=== PATIENT | female | born 1995 | race Caucasian/White ===

== ENCOUNTER 2017-01-01 17:33 | Emergency (ER) | payer SELFPAY ==
[~2017-01-01] VITALS: Wt 74.1 kg
[~2017-01-01 17:33] MED LIST: DICL50TA11 PO; HYDR-3498 PO; HYDR-906 PO; IBUP-1542 PO; METO50TA16 PO; NIFE30TA66 PO; PRENAT PO
[2017-01-01] MEDS ORDERED: ACETAMINOPHEN 325 MG TAB PO ONE (19:00)
[2017-01-01 19:07] LABS: ADD UMIC NO; URINE BILIRUBIN (Dip) NEGATIVE (NEGATIVE); URINE BLOOD (Dip) NEGATIVE (NEGATIVE); URINE COLOR LT. YELLOW (YELLOW); URINE GLUCOSE (Dip) NEGATIVE (NEGATIVE); URINE KETONES (Dip) NEGATIVE (NEGATIVE); URINE LEUKOCYTE ESTERASE (Dip) NEGATIVE (NEGATIVE); URINE NITRITE (Dip) NEGATIVE (NEGATIVE); URINE TOTAL PROTEIN (Dip) NEGATIVE (NEGATIVE); URINE UROBILINOGEN (Dip) 0.2 E.U./dL (0.1-1.0)
[2017-01-01] MEDS ORDERED: OXYC-279 PO (20:12)
[2017-01-01] MEDS ORDERED: CIPR500T4 PO (20:12)
[2017-01-01] MEDS ORDERED: ONDANSETRON (ODT) 4 MG TAB ODT STA (20:27)
[2017-01-01] MEDS ORDERED: CIPROFLOXACIN 500 MG TAB PO ONE (20:30)
[2017-01-01] MEDS ORDERED: OXYCODONE/ACETAMINOPHEN (5/325) TAB PO ONE (20:30)
--- NOTE | 2017-01-01 20:31 | ERD ---
ER Documentation Chief Complaint Date/Time DATE: 01/01/17 TIME: 20:31 Chief Complaint 2 MOS NO PERIOD.LOWER ABD PAIN. NO N/V. NO DIARREHA OR FEVERS HPI 21-year-old woman presents with irregular menstruation 2 months with suprapubic discomfort. She states she has been urinating frequently for the last 1 week. She denies fevers or chills, no weight loss, no vaginal discharge , no anorexia, no complaints of chest pain or shortness of breath. ROS All systems reviewed and are negative except as per history of present illness. Medications Home Meds Active Scripts Ondansetron Hcl* (Zofran*) 4 Mg Tablet, 4 MG PO Q8H Y for NAUSEA AND/OR VOMITING , #12 TAB Prov:MARCO BETANCOURT MD 01/01/17 Oxycodone HCl/Acetaminophen (Percocet 5-325 mg Tablet) 1 Each Tablet, 1 EACH PO TID for PAIN, #12 TAB Prov:MARCO BETANCOURT MD 01/01/17 Ciprofloxacin Hcl* (Ciprofloxacin Hcl*) 500 Mg Tablet, 500 MG PO BID for 5 Days , TAB Prov:MARCO BETANCOURT MD 01/01/17 Hydrocodone Bit-Acetaminophen* ([place]*) 5-325 Mg Tab, 1 TAB PO Q6 Y for PAIN, # 20 TAB Prov:TROY VILLA NP 12/13/15 Ibuprofen* (Motrin*) 600 Mg Tab, 600 MG PO Q6H Y for PAIN AND OR ELEVATED TEMP, #30 TAB Prov:TROY VILLA NP 12/13/15 Ibuprofen* (Motrin*) 600 Mg Tab, 600 MG PO Q6, #30 TAB Prov:JOANA MAZARIEGOS 12/06/15 Hydrocodone Bit-Acetaminophen ([place]) 5-325 Mg Tablet, 1 TAB PO Q8 Y for PAIN, # 7 TAB Prov:RENO MCKEON DO 06/29/15 Diclofenac Sodium* (Diclofenac Sodium*) 50 Mg Tablet.dr, 50 MG PO TID, #10 TAB Prov:RENO MCKEON DO 06/29/15 Reported Medications Metoprolol Succinate* (Toprol XL*) Unknown Strength Tab.er.24h, PO DAILY, #20 TAB 12/13/15 Nifedipine* (Procardia XL*) 30 Mg/Bottle Tab.osm.24, 30 MG PO TID for 7 Days, TAB.SA 09/02/14 Multivit/Min/Fol Ac/Iron/Pren* ( S*) 1 Tab Tab, 1 TAB PO DAILY, TAB 06/13/14 Allergies Allergies: Coded Allergies: Penicillins (Verified Allergy, Intermediate, RASH, 06/13/14) PMhx/Soc Hypertension History of Surgery: Yes (c section; gallbladder surgery) Anesthesia Reaction: No Hx Neurological Disorder: Yes Hx Respiratory Disorders: Yes (sinus infection) Hx Cardiac Disorders: Yes (hypertension) Hx Psychiatric Problems: No Hx Miscellaneous Medical Probl: No Hx Alcohol Use: Yes (socially) Hx Substance Use: No Hx Tobacco Use: Yes Smoking Status: Never smoker FmHx Family History: No diabetes Physical Exam Vitals Vital Signs Date Time Temp Pulse Resp B/P Pulse Ox O2 Delivery O2 Flow Rate FiO2 01/01/17 17:59 98.9 102 20 160/82 100 Physical Exam GENERAL: Well-developed, well-nourished, well-hydrated, in no apparent distress , looks nontoxic in appearance HEENT: Moist mucous membranes, pink conjunctiva, no cervical spine tenderness or step-off deformities, no goiter, no jaundice or icterus, extraocular movements intact without pain. No submandibular induration, and no pharyngeal erythema NEURO: Alert and oriented 3, cranial nerves II through XII intact bilaterally, pupils equal round reactive to light, no focal deficits or facial asymmetry, sensation intact distally Strength 5/5 in upper and lower extremities bilaterally CARDIAC: Regular rate and rhythm, no murmurs rubs or gallops LUNGS: Clear bilaterally no wheezing crackles or stridor ABDOMEN: Soft nontender, no guarding, no rigidity, no rebound, no psoas sign no obturator sign. Normoactive bowel sounds SKIN: Warm and dry to touch, no abrasions, contusions, or hematomas, no lacerations, no ecchymosis, no target lesions, and without ulcers EXTREMITIES: No clubbing cyanosis or edema, calves are bilaterally symmetrical, no Homans sign, no popliteal cord sign. Distal pulses equal and bilateral PSYCH: Normal affect without agitation or irritability Results 24 hrs Laboratory Tests Test 01/01/17 18:35 Urine Color LT. YELLOW Urine Clarity CLEAR Urine pH 6.0 Urine Specific [place] 1.020 Urine Ketones NEGATIVE Urine Nitrite NEGATIVE Urine Bilirubin NEGATIVE Urine Urobilinogen 0.2 E.U./dL Urine Leukocyte Esterase NEGATIVE Urine Hemoglobin NEGATIVE Urine Glucose NEGATIVE% Urine Total Protein NEGATIVE Current Medications Medications (Trade) Dose Ordered Sig/Nino Route PRN Reason Start Time Stop Time Status Last Admin Dose Admin Acetaminophen (Tylenol Tab) 650 mg ONCE ONCE PO 01/01/17 19:00 01/01/17 19:01 DC 01/01/17 18:59 Oxycodone/ Acetaminophen (Percocet (5/ 325)) 1 tab ONCE ONCE PO 01/01/17 20:30 01/01/17 20:31 DC 01/01/17 20:22 Ciprofloxacin (Cipro) 500 mg ONCE ONCE PO 01/01/17 20:30 01/01/17 20:31 DC 01/01/17 20:21 Ondansetron HCl (Zofran Odt) 4 mg ONCE STAT ODT 01/01/17 20:27 01/01/17 20:28 DC Procedures/MDM test was negative and urine analysis appears clean although she does have increased urinary frequency and I will be treating her as an outpatient with antibiotics. I initially administered acetaminophen 650 mg p.o. followed by Percocet 1 tablet p.o. with good pain relief. I recommended she follow-up with gynecology to control her irregular menstrual cycle. Her abdominal examination is benign and she has normal vital signs without fever although given her symptoms I did tell her return if she develops fever worsening abdominal pain, vomiting, or anorexia. Differential diagnoses considered, included but not limited to acute coronary syndrome, pulmonary embolism, aortic dissection, abdominal aortic aneurysm, sepsis, stroke, meningitis, encephalitis, pneumonia, appendicitis, cholecystitis , bowel obstruction, pyelonephritis, nephrolithiasis, cystitis, as well as metabolic, hematologic, and electrolyte abnormalities. As well as abscess, cellulitis, fractures, and dislocations. Patient feels much better at this time, and vital signs are normal, symptoms have improved. I did give strict instructions to return to the ED if symptoms continue or worsen, patient will otherwise follow-up with primary care physician. Patient understood instructions and agreed to plan. Departure Diagnosis: Primary Impression: Abdominal pain Abdominal location: lower abdomen, unspecified Qualified Code: R10.30 - Lower abdominal pain Additional Impression: Dysfunctional uterine bleeding Condition: Good Patient Instructions: Abdominal Pain Referrals: IZZY WHITMAN (PCP) MARCO BETANCOURT MD Jan 01, 2017 20:31
[2017-01-01] MEDS ORDERED: ONDA4TAB8 PO (20:32)
== END 2017-01-01 20:37 | disposition home or self-care (01) ==
LOC: FTE 17:33
DX: R10.30 Lower abdominal pain, unspecified (principal); N93.8 Other specified abnormal uterine and vaginal bleeding; I10 Essential (primary) hypertension; F17.210 Nicotine dependence, cigarettes, uncomplicated
CPT/HCPCS: 81003; 99284

== ENCOUNTER 2017-01-05 23:49 | Inpatient (IN) | payer BC ==
[~2017-01-05] VITALS: Ht 149.9 cm; Wt 74.0 kg
[~2017-01-05 23:49] MED LIST changes: +CIPR500T4 PO; +ONDA4TAB8 PO; +OXYC-279 PO
[2017-01-06] MEDS ORDERED: SOD CHLORIDE 0.9% 1,000 ML IV STA (00:09)
[2017-01-06 00:36] LABS: ADD SCAN DIFF NO
[2017-01-06 00:41] LABS: BASOPHILS % 0.5 % (0.0-2.0); EOSINOPHILS # 0.2 10^3/ul (0.0-0.5); EOSINOPHILS % 2.4 % (0.0-7.0); HEMATOCRIT 45.7 % (37.0-47.0); HEMOGLOBIN 15.1 g/dl (12.0-16.0); LYMPHOCYTES # 3.1 10^3/ul (0.8-2.9); MEAN CORPUSCULAR HEMOGLOBIN 28.1 pg (29.0-33.0); MEAN CORPUSCULAR VOLUME 85.1 fl (82.0-101.0); MEAN PLATELET VOLUME 10.8 fl (7.4-10.4); MONOCYTE # 0.7 10^3/ul (0.3-0.9); MONOCYTES % 8.2 % (0.0-11.0); NEUTROPHIL # 4.2 10^3/ul (1.6-7.5); NEUTROPHILS % 50.8 % (39.0-77.0); PLATELET COUNT 304 10^3/UL (140-415); RED BLOOD COUNT 5.37 10^6/ul (4.20-5.40); RED CELL DISTRIBUTION WIDTH 12.6 % (11.5-14.5); WHITE BLOOD COUNT 8.3 10^3/ul (4.8-10.8)
[2017-01-06 01:00] LABS: ALBUMIN 4.9 g/dl (3.3-4.9)
[2017-01-06 01:01] LABS: CHLORIDE 107 mmol/L (97-110); POTASSIUM 3.7 mmol/L (3.5-5.1); SODIUM 142 mmol/L (135-144)
[2017-01-06 01:15] LABS: ALANINE AMINOTRANSFERASE 29 IU/L (13-69); ALBUMIN/GLOBULIN RATIO 1.53; ALKALINE PHOSPHATASE 127 IU/L (42-121); ANION GAP 14 (8-16); ASPARTATE AMINO TRANSFERASE 26 IU/L (15-46); B-TYPE NATRIURETIC PEPTIDE 32 PG/ML (0-125); BILIRUBIN,INDIRECT 0.1 mg/dl (0-1.1); BILIRUBIN,TOTAL 0.1 mg/dl (0.2-1.3); BLOOD UREA NITROGEN 15 mg/dl (7-20); CALCIUM 9.8 mg/dl (8.4-10.2); CARBON DIOXIDE 25 mmol/L (21-31); CREATININE 0.54 mg/dl (0.44-1.00); GLUCOSE 98 mg/dl (70-220); TOTAL PROTEIN 8.1 g/dl (6.1-8.1)
[2017-01-06 01:18] LABS: TROPONIN-I < 0.012 ng/ml (0.00-0.12)
--- NOTE | 2017-01-06 01:18 | RADRPT ---
PROCEDURE: CHEST - 1 VIEW CLINICAL INDICATION: 21-year-old female with chest pain. TECHNIQUE: A single frontal AP upright portable view of the chest was performed. The images were reviewed on a PACS workstation. COMPARISON: Chest x-ray December 06, 2015. FINDINGS: The cardiomediastinal silhouette has a normal appearance. There is no evidence for an infiltrate. T he pulmonary vascularity is within normal limits. There is no evidence for pneumothorax or pneumomed iastinum. The osseous structures are intact. IMPRESSION: No evidence for active cardiopulmonary disease. .Candido Crabtree MD, Date Time Electronically viewed and signed by .Candido Crabtree MD, on 01/06/2017 01:18 .M/
[2017-01-06 01:19] LABS: INR 1.07; PARTIAL THROMBOPLASTIN TIME 29.2 Sec (25.0-35.0); PROTIME 13.9 Sec (12.2-14.2); PT RATIO 1.1; T3 UPTAKE 33.6 % (23.5-40.5)
[2017-01-06] MEDS ORDERED: ONDANSETRON 4 MG INJ IV STA (02:10)
[2017-01-06] MEDS ORDERED: morphine 4 MG/ML VIAL IV STA (02:10)
--- NOTE | 2017-01-06 03:07 | ERA ---
ER Documentation Chief Complaint Date/Time DATE: 01/06/17 TIME: 03:05 Chief Complaint CHEST PRESSURE STARTED 30 MINS AGO HPI This is a 21-year-old female with chest pressure that started 30 minutes ago. The pain is mild to moderate intensity. She is found to have severely elevated heart rate on triage EKG. Denies palpitations. Denies any nausea vomiting. Denies any diaphoresis. Denies any other current complaints. ROS All systems reviewed and are negative except as per history of present illness. Medications Home Meds Active Scripts Ondansetron Hcl* (Zofran*) 4 Mg Tablet, 4 MG PO Q8H Y for NAUSEA AND/OR VOMITING , #12 TAB Prov:MARCO BETANCOURT MD 01/01/17 Oxycodone HCl/Acetaminophen (Percocet 5-325 mg Tablet) 1 Each Tablet, 1 EACH PO TID for PAIN, #12 TAB Prov:MARCO BETANCOURT MD 01/01/17 Ciprofloxacin Hcl* (Ciprofloxacin Hcl*) 500 Mg Tablet, 500 MG PO BID for 5 Days , TAB Prov:MARCO BEATNCOURT MD 01/01/17 Hydrocodone Bit-Acetaminophen* ([place]*) 5-325 Mg Tab, 1 TAB PO Q6 Y for PAIN, # 20 TAB Prov:TROY VILLA YARN HANDLER 12/13/15 Ibuprofen* (Motrin*) 600 Mg Tab, 600 MG PO Q6H Y for PAIN AND OR ELEVATED TEMP, #30 TAB Prov:TROY VILLA [employer] HANDLER 12/13/15 Ibuprofen* (Motrin*) 600 Mg Tab, 600 MG PO Q6, #30 TAB Prov:JOANA MAZARIEGOS 12/06/15 Hydrocodone Bit-Acetaminophen ([place]) 5-325 Mg Tablet, 1 TAB PO Q8 Y for PAIN, # 7 TAB Prov:RENO MCKEON DO 06/29/15 Diclofenac Sodium* (Diclofenac Sodium*) 50 Mg Tablet.dr, 50 MG PO TID, #10 TAB Prov:RENO MCKEON DO 06/29/15 Reported Medications Metoprolol Succinate* (Toprol XL*) Unknown Strength Tab.er.24h, PO DAILY, #20 TAB 12/13/15 Nifedipine* (Procardia XL*) 30 Mg/Bottle Tab.osm.24, 30 MG PO TID for 7 Days, TAB.SA 09/02/14 Multivit/Min/Fol Ac/Iron/Pren* ( S*) 1 Tab Tab, 1 TAB PO DAILY, TAB 06/13/14 Allergies Allergies: Coded Allergies: Penicillins (Verified Allergy, Intermediate, RASH, 06/13/14) PMhx/Soc History of Surgery: Yes (c section; gallbladder surgery) Anesthesia Reaction: No Hx Neurological Disorder: Yes Hx Respiratory Disorders: Yes (sinus infection) Hx Cardiac Disorders: Yes (hypertension, a-fib) Hx Psychiatric Problems: No Hx Miscellaneous Medical Probl: No Hx Alcohol Use: Yes (socially) Hx Substance Use: No Hx Tobacco Use: Yes Smoking Status: Current some day smoker Physical Exam Vitals Vital Signs Date Time Temp Pulse Resp B/P Pulse Ox O2 Delivery O2 Flow Rate FiO2 01/06/17 01:29 101 17 127/75 100 Room Air 01/06/17 00:26 97 17 151/110 100 Room Air 01/05/17 23:56 98.8 90 20 138/100 100 Physical Exam Const: [] Head: Atraumatic Eyes: Normal Conjunctiva ENT: Normal External Ears, Nose and Mouth. Neck: Full range of motion..~ No meningismus. Resp: Clear to auscultation bilaterally Cardio: Regular rate and rhythm, no murmurs Abd: Soft, non tender, non distended. Normal bowel sounds Skin: No petechiae or rashes Back: No midline or flank tenderness Ext: No cyanosis, or edema Neur: Awake and alert Psych: Normal Mood and Affect Result Diagram: 01/06/17 0020 01/06/17 0020 Results 24 hrs Laboratory Tests Test 01/06/17 00:20 White Blood Count 8.310^3/ul Red Blood Count 5.3710^6/ul Hemoglobin 15.1g/dl Hematocrit 45.7% Mean Corpuscular Volume 85.1fl Mean Corpuscular Hemoglobin 28.1pg Mean Corpuscular Hemoglobin Concent 33.0g/dl Red Cell Distribution Width 12.6% Platelet Count 85500^3/UL Mean Platelet Volume 10.8fl Neutrophils % 50.8% Lymphocytes % 38.0% Monocytes % 8.2% Eosinophils % 2.4% Basophils % 0.5% Nucleated Red Blood Cells % 0.0/100WBC Neutrophils # 4.210^3/ul Lymphocytes # 3.110^3/ul Monocytes # 0.710^3/ul Eosinophils # 0.210^3/ul Basophils # 0.010^3/ul Nucleated Red Blood Cells # 0.010^3/ul Prothrombin Time 13.9Sec Prothrombin Time Ratio 1.1 INR International Normalized Ratio 1.07 Activated Partial Thromboplast Time 29.2Sec Sodium Level 142mmol/L Potassium Level 3.7mmol/L Chloride Level 107mmol/L Carbon Dioxide Level 25mmol/L Anion Gap 14 Blood Urea Nitrogen 15mg/dl Creatinine 0.54mg/dl Glucose Level 98mg/dl Calcium Level 9.8mg/dl Total Bilirubin 0.1mg/dl Direct Bilirubin 0.00mg/dl Indirect Bilirubin 0.1mg/dl Aspartate Amino Transf (AST/SGOT) 26IU/L Alanine Aminotransferase (ALT/SGPT) 29IU/L Alkaline Phosphatase 127IU/L Troponin I < 0.012ng/ml B-Type Natriuretic Peptide 32PG/ML Total Protein 8.1g/dl Albumin 4.9g/dl Globulin 3.20g/dl Albumin/Globulin Ratio 1.53 Thyroid Stimulating Hormone (TSH) 2.450MIU/L Free Thyroxine Index 2.15ug/ml Thyroxine (T4) 6.4ug/dl Triiodothyronine (T3) Uptake 33.6% Current Medications Medications (Trade) Dose Ordered Sig/Nino Route PRN Reason Start Time Stop Time Status Last Admin Dose Admin Sodium Chloride (NS) 1,000 ml @ 1,000 mls/hr Q1H STAT IV 01/06/17 00:09 01/06/17 01:08 DC 01/06/17 00:22 Morphine Sulfate (morphine) 4 mg ONCE STAT IV 01/06/17 02:10 01/06/17 02:13 DC 01/06/17 02:25 Ondansetron HCl (Zofran Inj) 4 mg ONCE STAT IV 01/06/17 02:10 01/06/17 02:13 DC 01/06/17 02:24 Procedures/MDM EKG: Rate/Rhythm: Irregular rate tachycardic rhythm QRS, ST, T-waves: [No changes consistent w/ acute ischemia] Impression: Atrial fibrillation rapid ventricular response Chest X-ray 1V Interpreted by me: Soft Tissue: No acute abnormalities Bones: No acute abnormalities Mediastinum/Cardiac Silhouette/Lungs: [No acute abnormalities] Patient's symptoms are concerning for cardiac cause will require inpatient workup and continuous monitoring. Further w/u for ischemia, arrhythmia, PE or dissection will be deferred to the inpatient team. Accepting Care Team: Current data and ongoing care discussed. Time: 3 AM Primary Provider: Hospitalist Consulting: [XOXOXO] Outstanding Data: none Departure Diagnosis: Primary Impression: Chest pain Qualified Code: R07.9 - Chest pain, unspecified type Additional Impression: Atrial fibrillation with RVR Condition: Serious AARTI CHANEY Jan 06, 2017 03:06
[2017-01-06 03:30] LABS: BARBITURATES Negative (NEGATIVE); BENZODIAZEPINES Negative (NEGATIVE); CANNABINOIDS Negative (NEGATIVE); COCAINE Negative (NEGATIVE); OPIATES Negative (NEGATIVE)
--- NOTE | 2017-01-06 03:48 | HP ---
Date/Time of Note Date/Time of Note DATE: 01/06/17 TIME: 03:39 Assessment/Plan VTE Prophylaxis VTE Prophylaxis Intervention: ambulation Assessment/Plan Assessment/Plan 1) Chest pain Qualified Code: R07.9 - Chest pain, unspecified type - Admit to Telemetry - Serial Cardiac Enzymes - EKG in AM - Cardiology Consult in AM 2) Atrial fibrillation with RVR, stabilized/converted spontaneously in ER - Monitor HPI/ROS Admit Date/Time Admit Date/Time 01/06/17 0451 Hx of Present Illness Patient tells me that her symptoms started when she was leaving work. She states she felt her heart race and then she felt it beat irregularly. She felt a little SOB and some nausea. No specific cardiac history, but she did have similar symptoms when she was . She states they did n't find anything, but she is not sure if she had atrial fibrillation at that time. Still a little SOB and nauseated though she is interested in getting something to eat. She states her chest feels better, but does not specifically describe chest pain. She states that she was in her usual state of health prior to this episode and has had no recent illness. No fever, chills, sore throat, cough, wheeze, abdominal pain, diarrhea or body aches. She does feel that her ankles are swollen, but does not relate it to this specific episode. According to the ER notes, the patient presented with chest pain that had started 30 minutes prior to arrival. They found her heart rate to be severely elevated on the triage EKG. She denied any palpitations or nausea or vomiting. No other current complaints. ROS General: Admits: Denies: Fever, Chills, Poor Appetite, Generalized Body Aches Eyes: Admits: Denies: Blurry Vision, Double Vision HENT: Admits: Denies: Ear Pain/Pressure, Runny/Stuffy Nose, Sore Throat Cardiovascular: Admits: Palpitations, Leg Swelling Denies: Chest Pain Pulmonary: Admits: Shortness of Breath Denies: Cough, Wheeze Gastrointestinal: Admits: Nausea, Denies: Abdominal Pain, Vomiting, Diarrhea, Blood in Stool, Black-Colored Stool Urogenital: Admits: Denies: Burning with Urination, Urinary Frequency Musculoskeletal: Admits: Denies: Joint Pain, Joint Swelling, Muscle Pain Neurological: Admits: Headache, mild, resolved Denies: Dizziness, Numbness, Tingling, Shooting Pains Integumentary: Admits: Denies: Rash, Itch Endocrine: Admits: Denies: Excessive Thirst, Excessive Hunger, Intolerant to Cold , Intolerant to Heat PMH/Family/Social Past Medical History HTN; A-fib Past Surgical History c section; gallbladder surgery Social History Alcohol Use: occasionally Smoking Status: Current some day smoker Drug Use: none Exam/Review of Systems Vital Signs Vitals Vital Signs Date Time Temp Pulse Resp B/P Pulse Ox O2 Delivery O2 Flow Rate FiO2 01/06/17 03:29 84 18 106/68 100 Room Air 01/05/17 23:56 98.8 Intake and Output 01/05/17 01/05/17 01/06/17 15:00 23:00 07:00 Intake Total 1000 ml Balance 1000 ml Exam Exam General: WD/WN 21 year old female, alert and oriented, in no acute distress Eyes: Sclera White, EOMI HENT: Normocephalic/Atraumatic, External Ears/Nose Normal, Moist Mucus Membranes Neck: Supple, Trachea Midline Cardiovascular: Normal Rate, Normal Rhythm, Normal S1 and S2, No Murmur, No Extra Sounds, radial pulse +2/4, regular. No pedal edema. Pulmonary: Clear to Auscultation Bilaterally, Normal Respiratory Effort, No Rales, Rhonchi or Wheezes Gastrointestinal: Normoactive Bowel Sounds, Soft, Non-Tender/Non-Distended, No Hepatosplenomegaly Appreciated, No Pulsatile Masses Urogenital: Deferred Musculoskeletal: Normal Muscle Bulk and Tone Neurological: CN II - XII Grossly Intact, Non-Focal, Speech Normal Integumentary: Normal Moisture and Temperature, Good Turgor, No Jaundice, No Rash Lymphatic: No Cervical Lymphadenopathy Psychiatric: Appropriate Mood and Affect, Good Eye Contact Labs Result Diagram: 01/06/17 0020 01/06/17 0020 Medications Medications Home Meds Active Scripts Ondansetron Hcl* (Zofran*) 4 Mg Tablet, 4 MG PO Q8H Y for NAUSEA AND/OR VOMITING , #12 TAB Prov:MARCO BETANCOURT MD 01/01/17 Oxycodone HCl/Acetaminophen (Percocet 5-325 mg Tablet) 1 Each Tablet, 1 EACH PO TID for PAIN, #12 TAB Prov:MARCO BETANCOURT MD 01/01/17 Ciprofloxacin Hcl* (Ciprofloxacin Hcl*) 500 Mg Tablet, 500 MG PO BID for 5 Days , TAB Prov:MARCO BETANCOURT MD 01/01/17 Hydrocodone Bit-Acetaminophen* ([place]*) 5-325 Mg Tab, 1 TAB PO Q6 Y for PAIN, # 20 TAB Prov:TROY VILLA [employer] COORDINATOR 12/13/15 Ibuprofen* (Motrin*) 600 Mg Tab, 600 MG PO Q6H Y for PAIN AND OR ELEVATED TEMP, #30 TAB Prov:TROY VILLA [employer] COORDINATOR 12/13/15 Ibuprofen* (Motrin*) 600 Mg Tab, 600 MG PO Q6, #30 TAB Prov:JOANA MAZARIEGOS 12/06/15 Hydrocodone Bit-Acetaminophen ([place]) 5-325 Mg Tablet, 1 TAB PO Q8 Y for PAIN, # 7 TAB Prov:RENO MCKEON DO 06/29/15 Diclofenac Sodium* (Diclofenac Sodium*) 50 Mg Tablet.dr, 50 MG PO TID, #10 TAB Prov:RENO MCKEON DO 06/29/15 Reported Medications Metoprolol Succinate* (Toprol XL*) Unknown Strength Tab.er.24h, PO DAILY, #20 TAB 12/13/15 Nifedipine* (Procardia XL*) 30 Mg/Bottle Tab.osm.24, 30 MG PO TID for 7 Days, TAB.SA 09/02/14 Multivit/Min/Fol Ac/Iron/Pren* ( S*) 1 Tab Tab, 1 TAB PO DAILY, TAB 06/13/14 Current Medications Medications (Trade) Dose Ordered Sig/Nino Route PRN Reason Start Time Stop Time Status Last Admin Dose Admin Sodium Chloride (NS) 1,000 ml @ 1,000 mls/hr Q1H STAT IV 01/06/17 00:09 01/06/17 01:08 DC 01/06/17 00:22 Morphine Sulfate (morphine) 4 mg ONCE STAT IV 01/06/17 02:10 01/06/17 02:13 DC 01/06/17 02:25 Ondansetron HCl (Zofran Inj) 4 mg ONCE STAT IV 01/06/17 02:10 01/06/17 02:13 DC 01/06/17 02:24 Procedures Procedures Laboratory Tests Test 01/06/17 00:20 White Blood Count 8.310^3/ul Red Blood Count 5.3710^6/ul Hemoglobin 15.1g/dl Hematocrit 45.7% Mean Corpuscular Volume 85.1fl Mean Corpuscular Hemoglobin 28.1pg Mean Corpuscular Hemoglobin Concent 33.0g/dl Red Cell Distribution Width 12.6% Platelet Count 98718^3/UL Mean Platelet Volume 10.8fl Neutrophils % 50.8% Lymphocytes % 38.0% Monocytes % 8.2% Eosinophils % 2.4% Basophils % 0.5% Nucleated Red Blood Cells % 0.0/100WBC Neutrophils # 4.210^3/ul Lymphocytes # 3.110^3/ul Monocytes # 0.710^3/ul Eosinophils # 0.210^3/ul Basophils # 0.010^3/ul Nucleated Red Blood Cells # 0.010^3/ul Prothrombin Time 13.9Sec Prothrombin Time Ratio 1.1 INR International Normalized Ratio 1.07 Activated Partial Thromboplast Time 29.2Sec Sodium Level 142mmol/L Potassium Level 3.7mmol/L Chloride Level 107mmol/L Carbon Dioxide Level 25mmol/L Anion Gap 14 Blood Urea Nitrogen 15mg/dl Creatinine 0.54mg/dl Glucose Level 98mg/dl Calcium Level 9.8mg/dl Total Bilirubin 0.1mg/dl Direct Bilirubin 0.00mg/dl Indirect Bilirubin 0.1mg/dl Aspartate Amino Transf (AST/SGOT) 26IU/L Alanine Aminotransferase (ALT/SGPT) 29IU/L Alkaline Phosphatase 127IU/L Troponin I < 0.012ng/ml B-Type Natriuretic Peptide 32PG/ML Total Protein 8.1g/dl Albumin 4.9g/dl Globulin 3.20g/dl Albumin/Globulin Ratio 1.53 Thyroid Stimulating Hormone (TSH) 2.450MIU/L Free Thyroxine Index 2.15ug/ml Thyroxine (T4) 6.4ug/dl Triiodothyronine (T3) Uptake 33.6% -E-K-G--:- Rate/Rhythm: Irregular rate tachycardic rhythm QRS, ST, T-waves: [No changes consistent w/ acute ischemia] Impression: Atrial fibrillation rapid ventricular response RADIOLOGY: PROCEDURE: CHEST - 1 VIEW CLINICAL INDICATION: 21-year-old female with chest pain. TECHNIQUE: A single frontal AP upright portable view of the chest was performed. The images were reviewed on a PACS workstation. COMPARISON: Chest x-ray December 06, 2015. IMPRESSION: No evidence for active cardiopulmonary disease. DAYANARA MCKENZIE DO Jan 06, 2017 03:48
[2017-01-06] MEDS ORDERED: NACL 0.9% 3 ML SYG IV SCH ×2 (04:00→07:00)
[2017-01-06] MEDS ORDERED: OXYCODONE/ACETAMINOPHEN (5/325) TAB PO PRN (04:00)
[2017-01-06] MEDS ORDERED: NITROGLYCERIN (SL) 0.4 MG TAB SL PRN ×2 (04:00→07:00)
[2017-01-06] MEDS ORDERED: morphine 2 MG INJ IV PRN ×2 (04:00→07:00)
[2017-01-06] MEDS ORDERED: METOCLOPRAMIDE 10 MG INJ IV ONE (04:00)
[2017-01-06] MEDS ORDERED: ACETAMINOPHEN 325 MG TAB PO PRN ×2 (04:00→07:00)
[2017-01-06] MEDS ORDERED: METOCLOPRAMIDE 10 MG INJ IV PRN (07:00)
[2017-01-06] MEDS ORDERED: ONDANSETRON 4 MG TAB PO PRN (07:00)
[2017-01-06] MEDS: HYDROCODONE/APAP (5/325) TAB PO PRN ×2 (07:32→20:35)
[2017-01-06] MEDS: NIFEdipine (XL) 30 MG TAB PO SCH ×3 (09:11→22:08)
--- NOTE | 2017-01-06 11:52 | QN ---
Documentation Comment Observation Note: Time: 4 hours Family Hx: Negative for diabetes Evaluation: Multiple exams showed improving symptoms and no evidence of clinical decompensation. PEE GASCA MD Jan 06, 2017 11:52
[2017-01-06 14:15] LABS: CREATINE KINASE 54 IU/L (23-200)
[2017-01-06 14:22] LABS: CK-MB 0.66 ng/ml (0.0-2.4)
[2017-01-06 14:26] LABS: TROPONIN-I < 0.012 ng/ml (0.00-0.12)
[2017-01-06 15:00] VITALS: Ht 149.9 cm; Wt 74.0 kg
[2017-01-06 15:04] VITALS: PULSE 92
[2017-01-06] MEDS ORDERED: KETOROLAC 30 MG INJ IV STA (15:15)
[2017-01-06 15:48] VITALS: BP 124/71; RESP 18
[2017-01-06 16:00] VITALS: PULSE 67
[2017-01-06 16:16] LABS: CREATINE KINASE 52 IU/L (23-200)
[2017-01-06 16:25] LABS: CK-MB 0.56 ng/ml (0.0-2.4)
[2017-01-06 16:31] LABS: TROPONIN-I < 0.012 ng/ml (0.00-0.12)
[2017-01-06 17:34] LABS: ADD UMIC YES; URINE BILIRUBIN (Dip) NEGATIVE (NEGATIVE); URINE BLOOD (Dip) 3+ (NEGATIVE); URINE COLOR LT. YELLOW (YELLOW); URINE GLUCOSE (Dip) NEGATIVE (NEGATIVE); URINE KETONES (Dip) NEGATIVE (NEGATIVE); URINE LEUKOCYTE ESTERASE (Dip) NEGATIVE (NEGATIVE); URINE NITRITE (Dip) NEGATIVE (NEGATIVE); URINE TOTAL PROTEIN (Dip) NEGATIVE (NEGATIVE); URINE UROBILINOGEN (Dip) 0.2 E.U./dL (0.1-1.0)
[2017-01-06 17:49] LABS: BACTERIA,URINE MANY; SQUAMOUS EPITHELIAL CELL,UR FEW
--- NOTE | 2017-01-06 18:52 | CONS ---
DATE OF ADMISSION: 01/06/2017 DATE OF CONSULTATION: 01/06/2017 TYPE OF CONSULTATION: Cardiology. REFERRING PHYSICIAN: Dr. Pearce. REASON FOR EVALUATION: Atrial fibrillation with rapid ventricular response. HISTORY OF PRESENT ILLNESS: Mr. Franklin is a 21-year-old woman with history of paroxysmal atrial f ibrillation who comes to the hospital now for evaluation of episode of atrial fibrillation with rapi d ventricular response. Patient was seen in the emergency department, heart rate at that time was 1 73. She was treated with medications, currently converted to sinus. The patient's CHADS score is l ess than 1. There is no indication for ____ blood pressure right now. I believe the patient ought to be on aspirin. I think consideration for atrial fibrillation and ablation is warranted at this p articular point. She states that she had a similar episode after her and I think that 2-D echo would be needed in order to evaluate for possible presence of cardiomyopathy. For now, conser vative therapy is expected. Patient tolerated a small dose of beta caden and she should also be o n aspirin. Other than that, we will wait for results to provide more information about her conditio n. PAST MEDICAL HISTORY: History of paroxysmal atrial fibrillation. ALLERGIES: NONE. SOCIAL HISTORY: The patient does not smoke, does not drink, does not use drugs now but she does hav e a history of tobacco use. FAMILY HISTORY: Negative for sudden cardiac or premature coronary artery disease. MEDICATIONS: Currently include: 1. Nifedipine 30 mg p.o. t.i.d. 2. IV flush. 3. Oxycodone. 4. Morphine for pain. REVIEW OF SYSTEMS: CONSTITUTIONAL: No fevers, no chills. CARDIAC: As described. HEENT: No changes in vision. CARDIAC: Chest pain during atrial fibrillation. RESPIRATORY: Shortness of breath, acute on chronic atrial fibrillation. GASTROINTESTINAL: No nausea, vomiting, diarrhea, constipation. GENITOURINARY: No dysuria, hematuria or difficult urination. NEUROLOGIC: No focal neurologic deficits. PSYCHIATRIC: Possible history of anxiety. PHYSICAL EXAMINATION: VITAL SIGNS: Temperature is 98.0, heart rate 67, blood pressure 124/71. GENERAL: She is an obese woman in no acute distress, alert and oriented x3, aware of her condition. HEAD: Normocephalic, atraumatic. Eyes anicteric. NECK: Supple. JVD 6-7 cm. There is no lymphadenopathy. HEART: Regular with soft holosystolic murmur at the apex. PMI is nondisplaced. No S3. LUNGS: Coarse at bases. ABDOMEN: Soft, bowel sounds are present. There is no hepatosplenomegaly. GENITOURINARY: Grossly intact. EXTREMITIES: No cyanosis or edema. LABORATORY DATA: White blood cell count 8.3, hemoglobin is 15.1, platelets 304. INR is 1.07. Sodi um 142, potassium 3.8. Her troponin is negative at 0.012. TSH is normal at 2.4. ASSESSMENT AND PLAN: Atrial fibrillation with rapid ventricular response. This is her second episo de. Her CHADS score is less than 1 and I recommend for the patient to be on aspirin. We will add b eta caden. 2. Hypertension. Blood pressure modestly well controlled. Continue current medical therapy. We will discontinue____ 3. Chest pain. The patient has chest pain during tachycardia as well as shortness of breath. She did not rule in for ischemia, no further risk stratification is warranted. I will follow up with a 2-D echo. 4. [address] Pearce for referring this patient for my evaluation. Dictated By: CINDY DAVID MD ML/MARSHALL Conf#: [id number] DID#: [id number]
[2017-01-06 20:11] VITALS: PULSE 78
[2017-01-06 20:37] VITALS: BP 135/71; RESP 20
[2017-01-07] VITALS (10 sets, daily range): BP systolic 106–122; BP diastolic 53–88; PULSE 60–89; RESP 16–20
[2017-01-07 00:02] LABS: CREATINE KINASE 53 IU/L (23-200)
[2017-01-07 00:12] LABS: CK-MB 0.59 ng/ml (0.0-2.4)
[2017-01-07 00:20] LABS: TROPONIN-I < 0.010 ng/ml (0.00-0.12)
[2017-01-07 07:39] LABS: ADD SCAN DIFF NO
[2017-01-07 07:44] LABS: BASOPHILS % 0.6 % (0.0-2.0); EOSINOPHILS # 0.3 10^3/ul (0.0-0.5); EOSINOPHILS % 3.8 % (0.0-7.0); HEMATOCRIT 41.8 % (37.0-47.0); HEMOGLOBIN 13.5 g/dl (12.0-16.0); LYMPHOCYTES # 3.1 10^3/ul (0.8-2.9); LYMPHOCYTES % 44.6 % (15.0-51.0); MEAN CORPUSCULAR HGB CONC 32.3 g/dl (32.0-37.0); MEAN CORPUSCULAR VOLUME 86.5 fl (82.0-101.0); MONOCYTE # 0.6 10^3/ul (0.3-0.9); MONOCYTES % 8.3 % (0.0-11.0); NEUTROPHIL # 2.9 10^3/ul (1.6-7.5); NEUTROPHILS % 42.6 % (39.0-77.0); PLATELET COUNT 253 10^3/UL (140-415); RED BLOOD COUNT 4.83 10^6/ul (4.20-5.40); RED CELL DISTRIBUTION WIDTH 12.8 % (11.5-14.5); WHITE BLOOD COUNT 6.8 10^3/ul (4.8-10.8)
[2017-01-07 08:02] LABS: CHOL/HDL RATIO 2.6 RATIO; MAGNESIUM 2.1 mg/dl (1.7-2.5)
[2017-01-07 08:03] LABS: POTASSIUM 4.4 mmol/L (3.5-5.1)
[2017-01-07 08:05] LABS: CREATININE 0.61 mg/dl (0.44-1.00)
[2017-01-07 08:06] LABS: CALCIUM 8.9 mg/dl (8.4-10.2)
[2017-01-07] MEDS: NIFEdipine (XL) 30 MG TAB PO SCH ×3 (09:10→22:00)
--- NOTE | 2017-01-07 11:36 | PN ---
Date/Time of Note Date/Time of Note DATE: 01/07/17 TIME: 11:33 Assessment/Plan VTE Prophylaxis VTE Prophylaxis Intervention: ambulation, SCD's Lines/Catheters Urinary Cath still in place: No Assessment/Plan Assessment/Plan 1. Paroxysmal Afib s/p RVR, now sinus with good rate 2. STEFF Chest pain 3. Chronic HTN: controlled PLAN: f/u echo report f/u cardio recs to see if ablation is warranted Continue BB. asa. supportive care. Subjective 24 Hr Interval Summary Free Text/Dictation feels well, no more palpitations Exam/Review of Systems Vital Signs Vitals Vital Signs Date Time Temp Pulse Resp B/P Pulse Ox O2 Delivery O2 Flow Rate FiO2 01/07/17 08:29 89 01/07/17 07:59 98.5 20 122/88 99 01/06/17 07:19 Room Air Intake and Output 01/06/17 01/06/17 01/07/17 15:00 23:00 07:00 Intake Total 500 ml 120 ml Balance 500 ml 120 ml Exam Constitutional: alert, obese, oriented, No distress Head: atraumatic, normocephalic Eyes: PERRL Neck: supple Respiratory: clear to auscultation, normal air movement Cardiovascular: regular rate and rhythm, No murmurs/extra sounds Gastrointestinal: bowel sounds, non-tender, soft Extremities: No edema Results Result Diagram: 01/07/17 0645 01/07/17 0645 Results 24 hrs Laboratory Tests Test 01/06/17 13:50 01/06/17 15:45 01/06/17 17:15 01/06/17 23:35 Creatine Kinase 54 52 53 Creatine Kinase Index 1.2 1.1 1.1 Creatinine Kinase MB (Mass) 0.66 0.56 0.59 Troponin I < 0.012 < 0.012 < 0.010 Magnesium Level 2.1 Urine Color LT. YELLOW Urine Clarity CLOUDY Urine pH 8.0 Urine Specific [place] 1.015 Urine Ketones NEGATIVE Urine Nitrite NEGATIVE Urine Bilirubin NEGATIVE Urine Urobilinogen 0.2 E.U./dL Urine Leukocyte Esterase NEGATIVE Urine Microscopic RBC 10-25 Urine Microscopic WBC 0-2 Urine Squamous Epithelial Cells FEW Urine Bacteria MANY Urine Hemoglobin 3+ H Urine Glucose NEGATIVE Urine Total Protein NEGATIVE Test 01/07/17 06:45 White Blood Count 6.8 Red Blood Count 4.83 Hemoglobin 13.5 Hematocrit 41.8 Mean Corpuscular Volume 86.5 Mean Corpuscular Hemoglobin 28.0 L Mean Corpuscular Hemoglobin Concent 32.3 Red Cell Distribution Width 12.8 Platelet Count 253 Mean Platelet Volume 11.0 H Neutrophils % 42.6 Lymphocytes % 44.6 Monocytes % 8.3 Eosinophils % 3.8 Basophils % 0.6 Nucleated Red Blood Cells % 0.0 Neutrophils # 2.9 Lymphocytes # 3.1 H Monocytes # 0.6 Eosinophils # 0.3 Basophils # 0.0 Nucleated Red Blood Cells # 0.0 Sodium Level 136 Potassium Level 4.4 Chloride Level 105 Carbon Dioxide Level 24 Anion Gap 11 Blood Urea Nitrogen 12 Creatinine 0.61 Glucose Level 91 Calcium Level 8.9 Magnesium Level 2.1 Triglycerides Level 83 Cholesterol Level 155 LDL Cholesterol, Calculated 80 HDL Cholesterol 58 Cholesterol/HDL Ratio 2.6 Medications Medications Current Medications Nifedipine (Procardia Xl) 30 mg TID PO Last administered on 01/07/17 09:10; Admin Dose 30 MG; Start 01/06/17 at 09:00 Nitroglycerin (Nitroglycerin (Sl Tab) 0.4 Mg) 1 tab Q5M PRN SL CHEST PAIN; Start 01/06/17 at 04:00 Acetaminophen (Tylenol Tab) 650 mg Q6H PRN PO PAIN LEVEL 1-3 OR FEVER; Start at 04:00 Oxycodone/ Acetaminophen (Percocet (5/ 325)) 1 tab Q6H PRN PO PAIN LEVEL 4-6; Start 01/06/17 at 04:00 Morphine Sulfate (morphine) 2 mg Q4H PRN IV PAIN LEVEL 7-10; Start 01/06/17 at 04:00 Ondansetron HCl (Zofran Tab) 4 mg Q6H PRN PO NAUSEA AND/OR VOMITING; Start 01/06 at 07:00 Metoclopramide HCl (Reglan) 10 mg Q6H PRN IV NAUSEA AND/OR VOMITING; Start 01/06 at 07:00 Acetaminophen/ Hydrocodone Bitart ([place] (5/325)) 1 tab Q6H PRN PO PAIN LEVEL 4 -6 Last administered on 01/06/17 20:35; Admin Dose 1 TAB; Start 01/06/17 at 07:00 Carvedilol (Coreg) 6.25 mg BID PO Last administered on 01/07/17t 09:11; Admin Dose 6.25 MG; Start 01/06/17 at 21:00 GIFTY WELLER Jan 07, 2017 11:36
[2017-01-07] MEDS: HYDROCODONE/APAP (5/325) TAB PO PRN (13:24)
[2017-01-07] MEDS ORDERED: CARV6.2579 PO (14:22)
[2017-01-07] MEDS ORDERED: NIFEdipine (XL) PO (14:22)
[2017-01-07] MEDS ORDERED: AMOX1TAB10 PO (14:22)
--- NOTE | 2017-01-07 14:25 | PDOCDIS ---
Discharge Instructions DIAGNOSIS Discharge Diagnosis: Paroxysmal Atrial Fibrillation CONDITION Patient Condition: Stable HOME CARE INSTRUCTIONS: Diet Instructions: Low Fat /Cholesterol ACTIVITY: Activity Restrictions: Slowly Increase Activity Rest between Activity OTHER ORDERS: Other Orders: Call Dr Srivastava's office for followup Name, Degree: Efra Vogel MD Specialty: Cardiology Comments: Office Address: [address] [place] [address] Office Office GIFTY WELLER Jan 07, 2017 14:25
--- NOTE | 2017-01-07 15:34 | CONS ---
Date/Time of Note Date/Time of Note DATE: 01/07/17 TIME: 15:30 Assessment/Plan Assessment/Plan Chief Complaint/Hosp Course IMP: 1.PAF-now in SR/NL TSH 2.CHest pain-at rest-negative troponin's>3 since admit ? vasospasm 3.HTN-well controlled Recc: -Tele -Continue CCB/BB/asa -for ongoing sx consider addition of oral nitrates -Will f/u echo -If remains stable with no recurrent symptoms then d/c planning with outpatient cardiology f/u Problems: Consultation Date/Type/Reason Admit Date/Time Jan 06, 2017 at 04:51 Initial Consult Date 01/06/2017 Type of Consultation: Cardiology Reason for Consultation AF/chest pain Referring Provider: GIFTY WELLER Exam/Review of Systems Vital Signs Vitals Vital Signs Date Time Temp Pulse Resp B/P Pulse Ox O2 Delivery O2 Flow Rate FiO2 01/07/17 12:28 76 01/07/17 12:16 98.8 20 106/53 98 01/06/17 07:19 Room Air Intake and Output 01/06/17 01/06/17 01/07/17 15:00 23:00 07:00 Intake Total 500 ml 120 ml Balance 500 ml 120 ml Exam Review of Systems: CONSTITUTIONAL: No fevers, chills. PULMONARY: No sob CARDIOVASCULAR:intermittent chest pain GASTROINTESTINAL: No nausea/vomiting. GENITOURINARY: No hematuria/dysuria. MUSCULOSKELETAL: No myagias/arthalgias. PSYCHIATRIC: The patient denies depression. NEUROLOGIC: No weakness Constitutional: alert, oriented Psych: no complaints Head: normocephalic ENMT: mucosa pink and moist Neck: jvd (8 cnm water), supple Respiratory: clear to auscultation Cardiovascular: regular rate and rhythm Gastrointestinal: non-tender, soft Musculoskeletal: muscle tone (normal) Extremities: edema (none) Neurological: other (No focal deficits) Results Result Diagram: 01/07/17 0645 01/07/17 0645 Results 24 hrs Laboratory Tests Test 01/06/17 15:45 01/06/17 17:15 01/06/17 23:35 01/07/17 06:45 Magnesium Level 2.1 2.1 Creatine Kinase 52 53 Creatine Kinase Index 1.1 1.1 Creatinine Kinase MB (Mass) 0.56 0.59 Troponin I < 0.012 < 0.010 Urine Color LT. YELLOW Urine Clarity CLOUDY Urine pH 8.0 Urine Specific [place] 1.015 Urine Ketones NEGATIVE Urine Nitrite NEGATIVE Urine Bilirubin NEGATIVE Urine Urobilinogen 0.2 E.U./dL Urine Leukocyte Esterase NEGATIVE Urine Microscopic RBC 10-25 Urine Microscopic WBC 0-2 Urine Squamous Epithelial Cells FEW Urine Bacteria MANY Urine Hemoglobin 3+ H Urine Glucose NEGATIVE Urine Total Protein NEGATIVE White Blood Count 6.8 Red Blood Count 4.83 Hemoglobin 13.5 Hematocrit 41.8 Mean Corpuscular Volume 86.5 Mean Corpuscular Hemoglobin 28.0 L Mean Corpuscular Hemoglobin Concent 32.3 Red Cell Distribution Width 12.8 Platelet Count 253 Mean Platelet Volume 11.0 H Neutrophils % 42.6 Lymphocytes % 44.6 Monocytes % 8.3 Eosinophils % 3.8 Basophils % 0.6 Nucleated Red Blood Cells % 0.0 Neutrophils # 2.9 Lymphocytes # 3.1 H Monocytes # 0.6 Eosinophils # 0.3 Basophils # 0.0 Nucleated Red Blood Cells # 0.0 Sodium Level 136 Potassium Level 4.4 Chloride Level 105 Carbon Dioxide Level 24 Anion Gap 11 Blood Urea Nitrogen 12 Creatinine 0.61 Glucose Level 91 Calcium Level 8.9 Triglycerides Level 83 Cholesterol Level 155 LDL Cholesterol, Calculated 80 HDL Cholesterol 58 Cholesterol/HDL Ratio 2.6 Medications Medications Current Medications Nifedipine (Procardia Xl) 30 mg TID PO Last administered on 01/07/17t 13:16; Admin Dose 30 MG; Start 01/06/17 at 09:00 Nitroglycerin (Nitroglycerin (Sl Tab) 0.4 Mg) 1 tab Q5M PRN SL CHEST PAIN; Start 01/06/17 at 04:00 Acetaminophen (Tylenol Tab) 650 mg Q6H PRN PO PAIN LEVEL 1-3 OR FEVER; Start at 04:00 Oxycodone/ Acetaminophen (Percocet (5/ 325)) 1 tab Q6H PRN PO PAIN LEVEL 4-6; Start 01/06/17 at 04:00 Morphine Sulfate (morphine) 2 mg Q4H PRN IV PAIN LEVEL 7-10; Start 01/06/17 at 04:00 Ondansetron HCl (Zofran Tab) 4 mg Q6H PRN PO NAUSEA AND/OR VOMITING; Start 01/06 at 07:00 Metoclopramide HCl (Reglan) 10 mg Q6H PRN IV NAUSEA AND/OR VOMITING; Start 01/06 at 07:00 Acetaminophen/ Hydrocodone Bitart ([place] (5/325)) 1 tab Q6H PRN PO PAIN LEVEL 4 -6 Last administered on 01/07/17 13:24; Admin Dose 1 TAB; Start 01/06/17 at 07:00 Carvedilol (Coreg) 6.25 mg BID PO Last administered on 01/07/17 09:11; Admin Dose 6.25 MG; Start 01/06/17 at 21:00 ISAURO TADEO Jan 07, 2017 15:34
--- NOTE | 2017-01-07 18:06 | RADRPT ---
Echocardiogram Report Patient Name: NEDA CID Gender: Female Date: 1995 Study Date: 07-Jan-2017 Mechanical Maintenance Supervisor: Jeanie Clements [facility] Location: 5549 Ref. Physician: GIFTY WELLER Quality: Good Procedures: Transthoracic echocardiogram with complete 2D, M-Mode, and doppler examination. Indications: Atrial Fibrillation w/ RVR. 2D/M Mode Doppler Measurement Value Normal Ranges Measurement Value Normal Ranges LVIDd 2D 4.6 3.5 - 5.6 cm AV Peak Nas 1.4 m/sec LVIDs 2D 2.4 2.1 - 4.1 cm AV Peak PG 7.3 mmHg LVPWd 2D 0.9 0.6 - 1.1 cm LVOT Peak Nas 1.0 m/sec IVSd 2D 0.8 0.6 - 1.1 cm LVOT Peak PG 3.8 mmHg AoR Diam 2D 2.3 2.0 - 3.7 cm MV E Peak Nas 1.0 m/sec EDV 2D 95.8 cm3 MV A Peak Nas 0.6 m/sec ESV 2D 14.0 cm3 MV E/A 1.7 LA Dimen 2D 3.5 2.3 - 4.0 cm MV Decel Time 178 msec MV Decel [place] 6 MV E/A 1.7 TR Peak Nas 2.1 m/sec TR Peak PG 17.3 mmHg RVSP 20.0 mmHg Findings Left Ventricle: Normal left ventricular systolic function. Normal left ventricular cavity size. Normal left ventricular wall thickness. Ejection fraction is visually estimated at 55 %. Tissue Doppler/Mitral Doppler indices are within normal limits. Right Ventricle: Normal right ventricular size. Normal right ventricular systolic function. Left Atrium: The left atrium is normal in size. Right Atrium: The right atrium is normal in size. Mitral Valve: Normal appearance and function of the mitral valve with trace physiologic regurgitation. Aortic Valve: Normal appearance of the aortic valve. No significant aortic stenosis or insufficiency. Tricuspid Valve: Normal appearance of the tricuspid valve. Estimated peak PA systolic pressure 20 mmHg. There is trace tricuspid regurgitation. Pulmonic Valve: Normal pulmonic valve appearance. Pericardium: Normal pericardium with no significant pericardial effusion. Aorta: Normal aortic root. IVC: Normal size and normal respiratory collapse consistent with normal right atrial pressure. Conclusions 1.Normal left ventricular systolic function. Normal left ventricular cavity size. Normal left ventricular wall thickness. Ejection fraction is visually estimated at 55 %. Tissue Doppler/Mitral Doppler indices are within normal limits. 2.Normal appearance and function of the mitral valve with trace physiologic regurgitation. 3.Normal appearance of the tricuspid valve. Estimated peak PA systolic pressure 20 mmHg. There is trace tricuspid regurgitation. Electronically Signed By: Efra Vogel 07-Jan-2017 18:05:54 -0700 Patient Name: NEDA CID Study Date: 07-Jan-2017 [id number]
[2017-01-07] MEDS ORDERED: NIT4 SL (18:32)
--- NOTE | 2017-01-07 19:29 | DS ---
DATE OF ADMISSION: 01/06/2017 DATE OF DISCHARGE: 01/07/2017 PRESENTING COMPLAINT: Tachycardia and midsternal chest pain. FINAL DIAGNOSES: 1. Paroxysmal atrial fibrillation status post rapid ventricular response, now in sinus with good rate control. 2. Musculoskeletal chest pain, now resolved. 3. Chronic hypertension, uncontrolled. 4. Urinary tract infection. CONSULTANTS ON THE CASE: Dr. Willy Reese and Dr. Efra Vogel. INTERVENTIONS: Chest x-ray showed no evidence of acute cardiopulmonary disease. At this point, 2D echocardiogram is still pending. DISCHARGE CONDITION: Stable. DIET: Recommended diet is low cholesterol, low fat. FOLLOWUP: The patient is recommended to follow up with Dr. Vogel in the office. She is a good candidate for ablation, but this needs to be worked up as an outpatient. If indicated, this will be pursued as an outpatient. DISCHARGE ACTIVITIES: As tolerated. DISCHARGE MEDICATIONS: 1. Amoxicillin 875/125 for 3 days. 2. Coreg 6.25 b.i.d. 3. Nifedipine 30 mg p.o. t.i.d. 4. [place] 5/325 one tablet every 6 p.r.n. 5. vitamins 1 tab daily. 6. Zofran as needed. Overall evaluation time >35mins Dictated By: GIFTY WELLER MD BA/NTS Conf#: [id number] DID#: [id number] CC: DAYANARA MCKENZIE MD;*EndCC* MTDD
--- NOTE | 2017-01-07 20:19 | EN ---
Date/Time of Note Date/Time of Note DATE: 01/07/17 TIME: 20:15 Event Note Medicine Medicine Event Note DISCHARGE MEDICATION CLARIFICATION: Called by RN. Anne does not know why she is being prescribed antibiotics, and she is allergic to PCN and was RXd Amoxicillin. I reviewed the records and spoke with her RN, dayron. She is being treated for a UTI. Give Bactrim DS 1 po now and I called in RX to [facility], [facility] in [place] at [phone], for Bactrim DS 1 po BID x 3 days #6 Rx0. DAYANARA MCKENZIE DO Jan 07, 2017 20:19
[2017-01-07] MEDS ORDERED: TRIMETHOPRIM/SULFAMETHOX (DS) TAB PO ONE (20:30)
--- NOTE | 2017-01-09 15:27 | RADRPT ---
Vent Rate: 61 bpm RR Interval: 0 msec CA Interval: 134 msec QRS Duration: 104 msec QT Interval: 420 msec QTC Interval: 422 msec P-R-T [place]: 2 - 72 - 44 degrees Normal sinus rhythm Normal ECG Electronically Signed By: Ivan Kaplan [id number]
== END 2017-01-07 22:24 | disposition home or self-care (01) | DRG 309 ==
LOC: E/R 23:49 → MS4 01-06 04:51
PROVIDERS: ADMIT Family Medicine; ATTEND Family Medicine
DX: I48.0 Paroxysmal atrial fibrillation (principal); N39.0 Urinary tract infection, site not specified; I10 Essential (primary) hypertension; R07.89 Other chest pain
CPT/HCPCS: 36415; 71010; 80048; 80053; 80061; 80307; 81001; 81003; 82550; 82553; 83735; 83880; 84436; 84443; 84479; 84484; 85025; 85610; 85730; 93005; 93306; 96361; 96374; 96375; J1885; J2270; J2405; J7030

== ENCOUNTER 2017-04-12 13:37 | Emergency (ER) | payer BC ==
[~2017-04-12] VITALS: Ht 152.4 cm; Wt 61.0 kg
[~2017-04-12 13:37] MED LIST changes: +AMOX1TAB10 PO; +CARV6.2579 PO; -CIPR500T4 PO; -DICL50TA11 PO; -HYDR-906 PO; -IBUP-1542 PO; -METO50TA16 PO; -NIFE30TA66 PO; +NIFEdipine (XL) PO; +NIT4 SL; -OXYC-279 PO
[2017-04-12 13:40] VITALS: Ht 152.4 cm; Wt 61.0 kg
--- NOTE | 2017-04-12 14:34 | RADRPT ---
PROCEDURE: XR Chest. CLINICAL INDICATION: chest pain TECHNIQUE: Single frontal view of the chest was obtained COMPARISON: 01/06/17 FINDINGS: The heart and mediastinum are within normal limits. The lungs are clear. There is no pleural effusion or pneumothorax. RPTAT: AA IMPRESSION: No acute disease. .Emre Hernandez MD, MD Date Time Electronically viewed and signed by .Emre Hernandez MD, on 04/12/2017 14:34 .S/
[2017-04-12 15:00] LABS: ADD UMIC YES; UR ASCORBIC ACID NEGATIVE (NEGATIVE); UR BACTERIA FEW /HPF (NONE SEEN); UR BILIRUBIN (Dip) NEGATIVE (NEGATIVE); UR BLOOD (Dip) 1+ mg/dL (NEGATIVE); UR CLARITY CLEAR (CLEAR); UR COLOR STRAW (YELLOW); UR GLUCOSE (Dip) NEGATIVE (NEGATIVE); UR KETONES (Dip) NEGATIVE (NEGATIVE); UR LEUKOCYTE ESTERASE (Dip) NEGATIVE Leu/ul (NEGATIVE); UR NITRITE (Dip) NEGATIVE (NEGATIVE); UR RBC 0 /HPF (0-5); UR SPECIFIC GRAVITY (Dip) 1.006 (1.003-1.030); UR TOTAL PROTEIN (Dip) NEGATIVE (NEGATIVE); UR UROBILINOGEN (Dip) NEGATIVE (NEGATIVE)
[2017-04-12 15:26] LABS: ADD SCAN DIFF NO
[2017-04-12 15:30] LABS: BASOPHILS % 0.4 % (0.0-2.0); EOSINOPHILS # 0.1 10^3/ul (0.0-0.5); EOSINOPHILS % 1.6 % (0.0-7.0); HEMATOCRIT 40.2 % (37.0-47.0); HEMOGLOBIN 13.3 g/dl (12.0-16.0); LYMPHOCYTES # 2.2 10^3/ul (0.8-2.9); LYMPHOCYTES % 31.2 % (15.0-51.0); MEAN CORPUSCULAR HEMOGLOBIN 27.9 pg (29.0-33.0); MEAN CORPUSCULAR HGB CONC 33.1 g/dl (32.0-37.0); MEAN CORPUSCULAR VOLUME 84.5 fl (82.0-101.0); MEAN PLATELET VOLUME 10.8 fl (7.4-10.4); MONOCYTE # 0.4 10^3/ul (0.3-0.9); MONOCYTES % 6.2 % (0.0-11.0); NEUTROPHIL # 4.3 10^3/ul (1.6-7.5); NEUTROPHILS % 60.3 % (39.0-77.0); PLATELET COUNT 254 10^3/UL (140-415); RED BLOOD COUNT 4.76 10^6/ul (4.20-5.40); RED CELL DISTRIBUTION WIDTH 12.9 % (11.5-14.5); WHITE BLOOD COUNT 7.1 10^3/ul (4.8-10.8)
[2017-04-12 15:45] LABS: INR 1.16; PARTIAL THROMBOPLASTIN TIME 29.6 Sec (25.0-35.0); PROTIME 14.8 Sec (12.2-14.2); PT RATIO 1.2
[2017-04-12 15:47] LABS: ALANINE AMINOTRANSFERASE 29 IU/L (13-69); ALBUMIN 4.8 g/dl (3.3-4.9); ALBUMIN/GLOBULIN RATIO 1.71; ALKALINE PHOSPHATASE 81 IU/L (42-121); ANION GAP 13 (8-16); ASPARTATE AMINO TRANSFERASE 21 IU/L (15-46); BLOOD UREA NITROGEN 11 mg/dl (7-20); CALCIUM 9.2 mg/dl (8.4-10.2); CARBON DIOXIDE 25 mmol/L (21-31); CHLORIDE 106 mmol/L (97-110); CREATININE 0.62 mg/dl (0.44-1.00); GLUCOSE 86 mg/dl (70-220); POTASSIUM 3.7 mmol/L (3.5-5.1); SODIUM 140 mmol/L (135-144); TOTAL PROTEIN 7.6 g/dl (6.1-8.1)
[2017-04-12] MEDS ORDERED: SOD CHLORIDE 0.9% 1,000 ML IV ONE (16:00)
[2017-04-12 16:04] LABS: TROPONIN-I < 0.012 ng/ml (0.00-0.12)
[2017-04-12] MEDS ORDERED: IOHEXOL 100 ML ONE (16:17)
[2017-04-12] MEDS ORDERED: SOD CHLORIDE 0.9% 100 ML ONE (16:17)
--- NOTE | 2017-04-12 16:40 | RADRPT ---
PROCEDURE: CTA Chest. CLINICAL INDICATION: shortness of breath, dizziness TECHNIQUE: The study was performed utilizing a multidetector CT scanner. Direct spiral 1 mm axial sections were obtained from the thoracic inlet to the upper abdomen with the use of 100 cc of Omnipa que 350 nonionic intravenous contrast material and reformatted at 3 mm. Coronal reformations were ob tained. The images were reviewed on a PACS workstation. CT D I 49 mCi. Dose 602 mCi per centimeter COMPARISON: No prior studies are available for comparison. FINDINGS: The aorta is without aneurysmal dilatation or dissection. There are small lymph nodes seen within th e mediastinum which are not pathologic by size criteria. The central pulmonary arteries are without evidence for filling defect to suggest pulmonary embolus or thrombus. There is no evidence for an in filtrate. No abnormal soft tissue masses or nodular densities are visualized. The osseous structures are unremarkable. Scans through the upper abdomen reveals that the upper liver is unremarkable. The adrenal glands have a normal appearance. The upper kidneys are functional and are without evidence for obstruction. IMPRESSION: No CT evidence for pulmonary embolus. .Andrea March MD, MD Date Time Electronically viewed and signed by .Andrea March MD, on 04/12/2017 16:40 .A/
[2017-04-12] MEDS ORDERED: MECLIZINE 12.5 MG TAB PO ONE (17:00)
[2017-04-12] MEDS ORDERED: MECL12.574 PO (17:32)
[2017-04-12 18:12] VITALS: BP 130/73; PULSE 84; RESP 18; TEMP 98.5
--- NOTE | 2017-04-12 18:12 | ERD ---
ER Documentation Chief Complaint Date/Time DATE: 04/12/17 TIME: 18:06 Chief Complaint dizziness HPI 21-year-old female with a past medical history of hypertension presents the ED complaining of dizziness, slight chest pain that happened at work. Reports that she was sitting and felt short of breath and felt like the room is spinning around her. States that her last menses was on April 06, 2017. States that she felt tingling in her bilateral hands. Reports that she feels some slight chest pressure. Denies any abdominal pain, nausea, vomiting, diarrhea, wheezing. Denies any palpitations. ROS All systems reviewed and are negative except as per history of present illness. Medications Home Meds Active Scripts Meclizine Hcl* (Antivert*) 12.5 Mg Tab, 12.5 MG PO Q6H Y for DIZZINESS, #20 TAB Prov:GABBI MONTANEZ PA-C 04/12/17 Nitroglycerin* (Nitrostat*) 0.4 Mg Tab.subl, 1 TAB SL Q5M Y for CHEST PAIN, #15 Prov:GIFTY WELLER 01/07/17 Amoxicillin/Potassium Clav (Amox-Clav 875-125 mg Tablet) 875-125 mg Tab, 1 TAB PO BID for 3 Days, TAB Prov:GIFTY WELLER 01/07/17 [NIFEdipine (XL)] 30 MG TABSR No Conflict Check, 30 MG PO TID for 30 Days, 2 Refills Prov:GIFTY WELLER 01/07/17 Carvedilol* (Carvedilol*) 6.25 Mg Tablet, 6.25 MG PO BID for 30 Days, TAB 1 Refill Prov:GITFY WELLER 01/07/17 Ondansetron Hcl* (Zofran*) 4 Mg Tablet, 4 MG PO Q8H Y for NAUSEA AND/OR VOMITING , #12 TAB Prov:MARCO BETANCOURT MD 01/01/17 Hydrocodone Bit-Acetaminophen* ([place]*) 5-325 Mg Tab, 1 TAB PO Q6 Y for PAIN, # 20 TAB Prov:TROY VILLA NP 12/13/15 Reported Medications Multivit/Min/Fol Ac/Iron/Pren* ( S*) 1 Tab Tab, 1 TAB PO DAILY, TAB 06/13/14 Allergies Allergies: Coded Allergies: Penicillins (Verified Allergy, Intermediate, RASH, 06/13/14) PMhx/Soc History of Surgery: Yes (CHOLECYSTECTOMY; C SECTION) Anesthesia Reaction: No Hx Neurological Disorder: No Hx Respiratory Disorders: No Hx Cardiac Disorders: Yes (HTN) Hx Psychiatric Problems: No Hx Miscellaneous Medical Probl: No Hx Alcohol Use: Yes (OCCASIONALLY) Hx Substance Use: No Hx Tobacco Use: Yes (3 CIGS) Smoking Status: Current every day smoker Physical Exam Vitals Vital Signs Date Time Temp Pulse Resp B/P Pulse Ox O2 Delivery O2 Flow Rate FiO2 04/12/17 13:40 98.4 82 20 114/73 99 Physical Exam Const: [id number], well-nourished. In no acute distress. Head: Atraumatic, normocephalic Eyes: Normal Conjunctiva without injection. No purulent discharge. PERRL. EOMI ENT: Normal external ear. Ear canal without erythema. Tympanic membrane pearly ervin without effusion or bulging. Nasal canal clear with normal turbinates. Moist oropharynx without tonsillar exudates. Non-erythematous pharynx. Uvula midline. No drooling. No trismus. Neck: Full range of motion. No meningismus. No cervical lymphadenopathy. Resp: Clear to auscultation bilaterally. No wheezing, rhonchi, rales, or crackles. No accessory muscle use. No retractions. Cardio: Regular rate and rhythm. No murmurs, rubs or gallops. Abd: Soft, non tender, non distended. Normal bowel sounds. No palpable masses. No rebound tenderness. No guarding. Skin: No petechiae or rashes Back: No midline tenderness. No CVA tenderness. Ext: No cyanosis, or edema. Neur: Awake and alert. Psych: Normal Mood and Affect Results 24 hrs Laboratory Tests Test 04/12/17 14:15 04/12/17 14:20 White Blood Count 7.110^3/ul Red Blood Count 4.7610^6/ul Hemoglobin 13.3g/dl Hematocrit 40.2% Mean Corpuscular Volume 84.5fl Mean Corpuscular Hemoglobin 27.9pg Mean Corpuscular Hemoglobin Concent 33.1g/dl Red Cell Distribution Width 12.9% Platelet Count 66504^3/UL Mean Platelet Volume 10.8fl Neutrophils % 60.3% Lymphocytes % 31.2% Monocytes % 6.2% Eosinophils % 1.6% Basophils % 0.4% Nucleated Red Blood Cells % 0.0/100WBC Neutrophils # 4.310^3/ul Lymphocytes # 2.210^3/ul Monocytes # 0.410^3/ul Eosinophils # 0.110^3/ul Basophils # 0.010^3/ul Nucleated Red Blood Cells # 0.010^3/ul Prothrombin Time 14.8Sec Prothrombin Time Ratio 1.2 INR International Normalized Ratio 1.16 Activated Partial Thromboplast Time 29.6Sec Sodium Level 140mmol/L Potassium Level 3.7mmol/L Chloride Level 106mmol/L Carbon Dioxide Level 25mmol/L Anion Gap 13 Blood Urea Nitrogen 11mg/dl Creatinine 0.62mg/dl Glucose Level 86mg/dl Calcium Level 9.2mg/dl Total Bilirubin 0.0mg/dl Direct Bilirubin 0.00mg/dl Indirect Bilirubin 0.0mg/dl Aspartate Amino Transf (AST/SGOT) 21IU/L Alanine Aminotransferase (ALT/SGPT) 29IU/L Alkaline Phosphatase 81IU/L Troponin I < 0.012ng/ml Total Protein 7.6g/dl Albumin 4.8g/dl Globulin 2.80g/dl Albumin/Globulin Ratio 1.71 Urine Color STRAW Urine Clarity CLEAR Urine pH 8.0 Urine Specific [place] 1.006 Urine Ketones NEGATIVEmg/dL Urine Nitrite NEGATIVEmg/dL Urine Bilirubin NEGATIVEmg/dL Urine Urobilinogen NEGATIVEmg/dL Urine Leukocyte Esterase NEGATIVELeu/ul Urine Microscopic RBC 0/HPF Urine Microscopic WBC 0/HPF Urine Bacteria FEW/HPF Urine Hemoglobin 1+mg/dL Urine Glucose NEGATIVEmg/dL Urine Total Protein NEGATIVEmg/dl Current Medications Medications (Trade) Dose Ordered Sig/Nino Route PRN Reason Start Time Stop Time Status Last Admin Dose Admin Sodium Chloride (NS) 1,000 ml @ 1,000 mls/hr Q1H ONCE IV 04/12/17 16:00 04/12/17 16:59 DC 04/12/17 15:41 IV Flush 10 ml 10 ml STK-MED ONCE .ROUTE 04/12/17 16:17 04/12/17 16:18 DC Sodium Chloride 100 ml @ ud STK-MED ONCE .ROUTE 7/9/17 16:17 04/12/17 16:18 DC Iohexol (Omnipaque) 100 ml @ ud STK-MED ONCE .ROUTE 04/12/17 16:17 04/12/17 16:18 DC Meclizine HCl (Antivert) 12.5 mg ONCE ONCE PO 04/12/17 17:00 04/12/17 17:01 DC 04/12/17 17:08 Procedures/MDM This is a 21-year-old female patient with no significant past medical history presents to the ED complaining of dizziness, shortness of breath and slight chest pain. Patient is afebrile and nontoxic-appearing. Patient has normal vital signs. This was discussed with Dr. Reid who stated that we should proceed with ordering a CTA to rule out pulmonary embolism. CBC: No leukocytosis. No e/o of systemic infection. No e/o anemia. CMP: No e/o severe acidosis, alkalosis, renal failure, diabetic ketoacidosis, liver disease Lipase within normal limits. Urine: No leukocyte esterase, no nitrites, no hematuria. Coagulation studies within normal limits. EKG reviewed and interpreted by Dr. Reid Rate/Rhythm: [69 bpm, Normal Sinus Rhythm] No ectopy, no ST elevations, normal axis. QRS, ST, T-waves: [No changes consistent w/ acute ischemia] Impression: [No evidence of ischemia or arrhythmia] PROCEDURE: XR Chest. CLINICAL INDICATION: chest pain TECHNIQUE: Single frontal view of the chest was obtained COMPARISON: 01/06/17 FINDINGS: The heart and mediastinum are within normal limits. The lungs are clear. There is no pleural effusion or pneumothorax. RPTAT: AA IMPRESSION: No acute disease. PROCEDURE: CTA Chest. CLINICAL INDICATION: shortness of breath, dizziness TECHNIQUE: The study was performed utilizing a multidetector CT scanner. Direct spiral 1 mm axial sections were obtained from the thoracic inlet to the upper abdomen with the use of 100 cc of Omnipaque 350 nonionic intravenous contrast material and reformatted at 3 mm. Coronal reformations were obtained. The images were reviewed on a PACS workstation. CT D I 49 mCi. Dose 602 mCi per centimeter COMPARISON: No prior studies are available for comparison. FINDINGS: The aorta is without aneurysmal dilatation or dissection. There are small lymph nodes seen within the mediastinum which are not pathologic by size criteria. The central pulmonary arteries are without evidence for filling defect to suggest pulmonary embolus or thrombus. There is no evidence for an infiltrate. No abnormal soft tissue masses or nodular densities are visualized. The osseous structures are unremarkable. Scans through the upper abdomen reveals that the upper liver is unremarkable. The adrenal glands have a normal appearance. The upper kidneys are functional and are without evidence for obstruction. IMPRESSION: No CT evidence for pulmonary embolus. Patient's dizziness could be secondary to positional vertigo however she was strictly instructed to follow-up with a neurologist/pharmacy stock clerk. Low suspicion for acute myocardial infarction, pneumothorax, pneumonia, cardiac tamponade, pulmonary embolism, AAA, aortic dissection, Boerhaave's syndrome, cardiac dysrhythmias,meningitis, intracranial bleed, seizure, stroke, TIA or other emergent conditions. This case was discussed with my supervising physician, Dr. Reid who agreed with the management and discharge plan. Discharge medications: Meclizine Follow up with primary care physician in 1-2 days for a referral to neurologist and pharmacy stock clerk. Instructed patient to return to the ED sooner for any worsening symptoms. Patient's questions were answered. Patient understood and agreed with discharge plan. Patient discharged stable. Departure Diagnosis: Primary Impression: Dizziness Additional Impression: Shortness of breath Condition: Stable Patient Instructions: Coping with Shortness of Breath: Controlling Stress, Dizziness (Vertigo) and Balance Problems: Ensuring Your Safety, Dizziness, Unk Cause Referrals: [facility] YOU HAVE RECEIVED A MEDICAL SCREENING EXAM AND THE RESULTS INDICATE THAT YOU DO NOT HAVE A CONDITION THAT REQUIRES URGENT TREATMENT IN THE EMERGENCY DEPARTMENT. FURTHER EVALUATION AND TREATMENT OF YOUR CONDITION CAN WAIT UNTIL YOU ARE SEEN IN YOUR DOCTORS OFFICE WITHIN THE NEXT 1-2 DAYS. IT IS YOUR RESPONSIBILITY TO MAKE AN APPOINTMENT FOR FOLOW-UP CARE. IF YOU HAVE A PRIMARY DOCTOR --you should call your primary doctor and schedule an appointment IF YOU DO NOT HAVE A PRIMARY DOCTOR YOU CAN CALL OUR PHYSICIAN REFERRAL HOTLINE AT IF YOU CAN NOT AFFORD TO SEE A PHYSICIAN YOU CAN CHOSE FROM THE FOLLOWING [facility] [address] [facility] [address] [facility] [address] [facility] [address] [facility] [address] [facility]. [facility] [address] [facility]. [facility] YOU HAVE RECEIVED A MEDICAL SCREENING EXAM AND THE RESULTS INDICATE THAT YOU DO NOT HAVE A CONDITION THAT REQUIRES URGENT TREATMENT IN THE EMERGENCY DEPARTMENT. FURTHER EVALUATION AND TREATMENT OF YOUR CONDITION CAN WAIT UNTIL YOU ARE SEEN IN YOUR DOCTORS OFFICE WITHIN THE NEXT 1-2 DAYS. IT IS YOUR RESPONSIBILITY TO MAKE AN APPOINTMENT FOR FOLOW-UP CARE. IF YOU HAVE A PRIMARY DOCTOR --you should call your primary doctor and schedule and appointment IF YOU DO NOT HAVE A PRIMARY DOCTOR YOU CAN CALL OUR PHYSICIAN REFERRAL HOTLINE AT . IF YOU CAN NOT AFFORD TO SEE A PHYSICIAN YOU CAN CHOSE FROM THE FOLLOWING [facility] INSTIT[facility]IONS: [facility] [address] [place] [address] [facility] [address] [place] [address] [facility] [address] [place] [address] [facility] URGENT CARE/SPECIALTIES Additional Instructions: Call your primary care doctor TOMORROW for an appointment during the next 1-2 days with a neurologist and pharmacy stock clerk. See the doctor sooner or return here if your condition worsens before your appointment time. GABBI MONTANEZ PA-C Apr 12, 2017 18:12 GABBI MONTANEZ PA-C Apr 12, 2017 18:12
== END 2017-04-12 18:14 | disposition home or self-care (01) ==
LOC: FTE 13:37
DX: R42 Dizziness and giddiness (principal); R06.02 Shortness of breath; I10 Essential (primary) hypertension; F17.210 Nicotine dependence, cigarettes, uncomplicated
CPT/HCPCS: 71010; 71275; 80053; 81001; 84484; 85025; 85610; 85730; 93005; J7030; Q9967; Z7610; 36415

== ENCOUNTER 2017-05-20 19:38 | Emergency (ER) | END 2017-05-20 23:12 | disposition home or self-care (01) | DX: M25.561 Pain in right knee (principal); I10 Essential (primary) hypertension; F17.210 Nicotine dependence, cigarettes, uncomplicated | CPT/HCPCS: 29505; 73562; Z7502; Z7610 ==

== ENCOUNTER 2017-06-26 13:47 | Emergency (ER) | payer BC ==
[~2017-06-26] VITALS: Ht 149.9 cm; Wt 72.0 kg
[~2017-06-26 13:47] MED LIST changes: +HYDR-906 PO; +IBUP-1542 PO; +MECL12.574 PO
[2017-06-26 13:52] VITALS: Ht 149.9 cm; Wt 72.0 kg
[2017-06-26] MEDS ORDERED: ONDANSETRON (ODT) 4 MG TAB ODT STA (14:54)
--- NOTE | 2017-06-26 14:58 | ERD ---
ER Documentation Chief Complaint Date/Time DATE: 06/26/17 TIME: 14:57 Chief Complaint epigastric pain x2d; no meds taken (OSIEL MATTHEW PA-C) HPI 7-year-old female presents with epigastric abdominal pain for the past 2 days. She describes as localized pain that is achy, moderate to severe associated with nonbloody nonbilious emesis. States she also had diarrhea yesterday. She has a history of cholecystectomy that was done many years ago she does not recall the exact year. She denies fevers or chills. She states that she came back from [place] [place] 2 years ago and had similar symptoms and states that she was told that she had hepatitis but does not know the specific type. (OSIEL MATTHEW PA-C) ROS All systems reviewed and are negative except as per history of present illness. (OSIEL MATTHEW PA-C) Medications Home Meds Active Scripts Hydrocodone/Acetaminophen ([place] 5-325 Tablet) 1 Each Tablet, 1 TAB PO Q6H Y for SEVERE PAIN LEVEL 7-10, #20 TAB Prov:TROY VILLA NP 05/20/17 Ibuprofen* (Motrin*) 600 Mg Tab, 600 MG PO Q6H Y for PAIN AND OR ELEVATED TEMP, #30 TAB Prov:TROY VILLA NP 05/20/17 Meclizine Hcl* (Antivert*) 12.5 Mg Tab, 12.5 MG PO Q6H Y for DIZZINESS, #20 TAB Prov:GABBI MONTANEZ PA-C 04/12/17 Nitroglycerin* (Nitrostat*) 0.4 Mg Tab.subl, 1 TAB SL Q5M Y for CHEST PAIN, #15 Prov:GFITY WELLER M. 01/07/17 Amoxicillin/Potassium Clav (Amox-Clav 875-125 mg Tablet) 875-125 mg Tab, 1 TAB PO BID for 3 Days, TAB Prov:GIFTY WELLER M. 01/07/17 [NIFEdipine (XL)] 30 MG TABSR No Conflict Check, 30 MG PO TID for 30 Days, 2 Refills Prov:GIFTY WELLER M. 01/07/17 Carvedilol* (Carvedilol*) 6.25 Mg Tablet, 6.25 MG PO BID for 30 Days, TAB 1 Refill Prov:GIFTY WELLER 01/07/17 Ondansetron Hcl* (Zofran*) 4 Mg Tablet, 4 MG PO Q8H Y for NAUSEA AND/OR VOMITING , #12 TAB Prov:MARCO BETANCOURT MD 01/01/17 Hydrocodone Bit-Acetaminophen* ([place]*) 5-325 Mg Tab, 1 TAB PO Q6 Y for PAIN, # 20 TAB Prov:TROY VILLA NP 12/13/15 Reported Medications Multivit/Min/Fol Ac/Iron/Pren* ( S*) 1 Tab Tab, 1 TAB PO DAILY, TAB 06/13/14 Allergies Allergies: Coded Allergies: Penicillins (Verified Allergy, Intermediate, RASH, 06/26/17) PMhx/Soc History of Surgery: Yes (CHOLECYSTECTOMY; C SECTION) Anesthesia Reaction: No Hx Neurological Disorder: No Hx Respiratory Disorders: No Hx Cardiac Disorders: Yes (HTN) Hx Psychiatric Problems: No Hx Miscellaneous Medical Probl: No Hx Alcohol Use: Yes (OCCASIONALLY) Hx Substance Use: No Hx Tobacco Use: Yes (3 CIGS) (OSIEL MATTHEWC) Medical and Surgical Hx: pt denies Medical Hx History of Surgery: Yes (Cholecystectomy) Hx Alcohol Use: No Hx Substance Use: No (DINA SAHNI MD) FmHx Family History: No coronary disease (DINA SAHNI MD) Physical Exam Vitals Vital Signs Date Time Temp Pulse Resp B/P Pulse Ox O2 Delivery O2 Flow Rate FiO2 06/26/17 17:58 98.0 98 18 135/81 98 Room Air 06/26/17 16:00 98.2 102 18 136/84 98 Room Air 06/26/17 13:52 98.1 105 16 153/83 98 (DINA SAHNI MD) Physical Exam General: Well-developed, well-nourished. The patient appears in no acute distress. HEENT: Head is normocephalic, atraumatic. No scleral icterus. Neck: Supple. Nontender. Lungs: Clear to auscultation. Normal air movement. Heart: Regular rate and rhythm. S1 and S2 are normal. No murmurs, gallops, or rubs. Abdomen: Soft, to palpation epigastric region nondistended. Bowel sounds are normoactive. Diffusely, no McBurney's tenderness. Extremities: No clubbing or cyanosis. Normal pulses. Moving extremities x 4. No weakness. Neurologic: Alert and oriented 3. No focal deficits. Skin: Normal turgor. No rash or lesions. (OSIEL MATTHEW PA-C) Result Diagram: 06/26/17 1505 06/26/17 1505 Results 24 hrs Laboratory Tests Test 06/26/17 15:04 06/26/17 15:05 Urine Opiates Screen Negative Urine Barbiturates Negative Urine Amphetamines Screen Negative Urine Benzodiazepines Screen Negative Urine Cocaine Screen Negative Urine Cannabinoids Negative White Blood Count 12.010^3/ul Red Blood Count 5.1910^6/ul Hemoglobin 15.0g/dl Hematocrit 44.4% Mean Corpuscular Volume 85.5fl Mean Corpuscular Hemoglobin 28.9pg Mean Corpuscular Hemoglobin Concent 33.8g/dl Red Cell Distribution Width 13.2% Platelet Count 29441^3/UL Mean Platelet Volume 10.3fl Neutrophils % 81.2% Lymphocytes % 11.1% Monocytes % 6.3% Eosinophils % 0.8% Basophils % 0.2% Nucleated Red Blood Cells % 0.0/100WBC Neutrophils # 9.710^3/ul Lymphocytes # 1.310^3/ul Monocytes # 0.810^3/ul Eosinophils # 0.110^3/ul Basophils # 0.010^3/ul Nucleated Red Blood Cells # 0.010^3/ul Urine Color LISA Urine Clarity SLIGHTLY CLOUDY Urine pH 5.0 Urine Specific [place] 1.027 Urine Ketones NEGATIVEmg/dL Urine Nitrite NEGATIVEmg/dL Urine Bilirubin NEGATIVEmg/dL Urine Urobilinogen 2+mg/dL Urine Leukocyte Esterase NEGATIVELeu/ul Urine Microscopic RBC 1/HPF Urine Microscopic WBC 5/HPF Urine Squamous Epithelial Cells FEW/HPF Urine Mucus MANY/HPF Urine Hemoglobin NEGATIVEmg/dL Urine Glucose NEGATIVEmg/dL Urine Total Protein 1+mg/dl Urine Test NEGATIVE Sodium Level 145mmol/L Potassium Level 3.6mmol/L Chloride Level 104mmol/L Carbon Dioxide Level 30mmol/L Anion Gap 15 Blood Urea Nitrogen 11mg/dl Creatinine 0.63mg/dl Glucose Level 96mg/dl Calcium Level 9.4mg/dl Total Bilirubin 0.3mg/dl Direct Bilirubin 0.00mg/dl Indirect Bilirubin 0.3mg/dl Aspartate Amino Transf (AST/SGOT) 714IU/L Alanine Aminotransferase (ALT/SGPT) 407IU/L Alkaline Phosphatase 191IU/L Total Protein 8.5g/dl Albumin 4.8g/dl Globulin 3.70g/dl Albumin/Globulin Ratio 1.29 Lipase 74U/L Current Medications Medications (Trade) Dose Ordered Sig/Nino Route PRN Reason Start Time Stop Time Status Last Admin Dose Admin Miscellaneous Medication (Gi Cocktail (2)) 40 ml ONCE ONCE PO 06/26/17 15:00 06/26/17 15:01 DC 06/26/17 15:10 Ondansetron HCl (Zofran Odt) 4 mg ONCE STAT ODT 06/26/17 14:54 06/26/17 14:56 DC 06/26/17 15:10 Morphine Sulfate (morphine) 4 mg ONCE STAT IV 06/26/17 16:09 06/26/17 16:10 DC 06/26/17 16:19 Ondansetron HCl 4 mg 4 mg ONCE STAT IV 06/26/17 16:09 06/26/17 16:10 DC 06/26/17 16:19 Sodium Chloride (NS) 1,000 ml @ 1,000 mls/hr Q1H ONCE IV 06/26/17 16:30 06/26/17 17:29 DC 06/26/17 16:19 Ondansetron HCl (Zofran Inj) 4 mg ONCE STAT IV 06/26/17 16:48 06/26/17 16:49 DC Metoclopramide HCl (Reglan) 10 mg ONCE ONCE IV 06/26/17 18:30 06/26/17 18:31 (DINA SAHNI MD) Results 24 hrs DIAGNOSTIC IMAGING REPORT Patient: NEDA CID : [id number] Age: 22 Sex: F MR #: [id number] DOS: 06/26/17 1605 Ordering MD: OSIEL MATTHEW PA-C Location: E Room/Bed: PROCEDURE: US Abdomen Limited . CLINICAL INDICATION: Abdominal pain TECHNIQUE: Multiple real-time images were acquired of the patient's right upper quadrant abdomen utilizing a high resolution transducer. COMPARISON: January 31, 2013 FINDINGS: The liver measures 13.7 cm and demonstrates a normal echogenicity. The gallbladder has been removed. The common bile duct measures 3.1 mm in diameter. The visualized portions of the proximal pancreas are unremarkable. The tail of the pancreas is not well visualized. Antegrade flow is seen in the portal vein. Right kidney measures 10.5 cm. Right kidney demonstrates a normal echogenicity. No hydronephrosis, masses or stones are noted. IMPRESSION: Status post cholecystectomy. Tail of the pancreas not well visualized. If characterization of this structure is needed repeat exam or CT/MRI is recommended. Otherwise, unremarkable exam. RPTAT: AA .Malcolm Ferrara MD, Date Time Electronically viewed and signed by .Malcolm Ferrara MD, MD on 06/26/2017 16:37 .P/ CC: OSIEL MATTHEW PA-C (OSIEL MATTHEW PA-C) Procedures/MDM 19-year-old female presents with epigastric abdominal pain nausea vomiting for the past 2 days, patient has elevated AST and ALT, AST is in the 700s, AST and is in the 400s. There is mild elevation of the alk phos with normal lipase. She reports that she had a cholecystectomy 7-8 years ago, and the patient states that she thinks she might of had diagnosis of hepatitis 2 years ago after returning from [facility] [place]. She does not know the kind specifically. And she denies any recent food trucks, or eating street food, having unprotected sexual intercourse, and denies IV drug abuse. She does have a history of nausea vomiting, with multiple doses of Zofran given in the emergency room. Based on her laboratory findings and clinical presentation, I spoken with my attending physician who agrees that the patient will need further testing for hepatitis, and monitoring. (OSIEL MATTHEW PA-C) The patient was seen and evaluated by me and the PA who initially saw her. I reviewed her imaging and her labs and feel the patient needs workup for hepatitis given her significant elevation of liver enzymes. I do not suspect biliary obstruction or pancreatitis. Patient is hemodynamically stable. Per her insurance, she is capped to another hospital, [facility]. I spoke with Dr. Castañeda at that hospital and he accepted the patient for transfer to [facility]. She was notified of transfer and she is agreeable with the plan. (DINA SAHNI MD) Departure Diagnosis: Primary Impression: Abdominal pain Abdominal location: epigastric Qualified Code: R10.13 - Epigastric pain Additional Impressions: Transaminitis Nausea & vomiting Vomiting type: unspecified Vomiting Intractability: non-intractable Qualified Code: R11.2 - Non-intractable vomiting with nausea, unspecified vomiting type Condition: Stable OSIEL MATTHEW PA-C Jun 26, 2017 14:57 DINA SAHNI MD Jun 26, 2017 18:14
[2017-06-26] MEDS ORDERED: LIDOCAINE/MYLANTA 40 ML BTL PO ONE (15:00)
[2017-06-26 15:25] LABS: BASOPHILS % 0.2 % (0.0-2.0); EOSINOPHILS # 0.1 10^3/ul (0.0-0.5); EOSINOPHILS % 0.8 % (0.0-7.0); HEMATOCRIT 44.4 % (37.0-47.0); LYMPHOCYTES # 1.3 10^3/ul (0.8-2.9); LYMPHOCYTES % 11.1 % (15.0-51.0); MEAN CORPUSCULAR HEMOGLOBIN 28.9 pg (29.0-33.0); MEAN CORPUSCULAR HGB CONC 33.8 g/dl (32.0-37.0); MEAN CORPUSCULAR VOLUME 85.5 fl (82.0-101.0); MEAN PLATELET VOLUME 10.3 fl (7.4-10.4); MONOCYTE # 0.8 10^3/ul (0.3-0.9); MONOCYTES % 6.3 % (0.0-11.0); NEUTROPHIL # 9.7 10^3/ul (1.6-7.5); NEUTROPHILS % 81.2 % (39.0-77.0); PLATELET COUNT 266 10^3/UL (140-415); RED BLOOD COUNT 5.19 10^6/ul (4.20-5.40); RED CELL DISTRIBUTION WIDTH 13.2 % (11.5-14.5)
[2017-06-26 15:32] LABS: ADD UMIC YES; UR ASCORBIC ACID 20 mg/dL (NEGATIVE); UR BILIRUBIN (Dip) NEGATIVE (NEGATIVE); UR BLOOD (Dip) NEGATIVE (NEGATIVE); UR CLARITY SLIGHTLY CLOUDY (CLEAR); UR COLOR AMBER (YELLOW); UR GLUCOSE (Dip) NEGATIVE (NEGATIVE); UR KETONES (Dip) NEGATIVE (NEGATIVE); UR LEUKOCYTE ESTERASE (Dip) NEGATIVE Leu/ul (NEGATIVE); UR MUCUS MANY /HPF (NONE SEEN); UR NITRITE (Dip) NEGATIVE (NEGATIVE); UR RBC 1 /HPF (0-5); UR SPECIFIC GRAVITY (Dip) 1.027 (1.003-1.030); UR SQUAMOUS EPITHELIAL CELL FEW /HPF (FEW); UR TOTAL PROTEIN (Dip) 1+ mg/dl (NEGATIVE); UR UROBILINOGEN (Dip) 2+ mg/dL (NEGATIVE)
[2017-06-26 15:42] LABS: ALBUMIN 4.8 g/dl (3.3-4.9); ALBUMIN/GLOBULIN RATIO 1.29; BILIRUBIN,INDIRECT 0.3 mg/dl (0-1.1); BILIRUBIN,TOTAL 0.3 mg/dl (0.2-1.3); CALCIUM 9.4 mg/dl (8.4-10.2); CREATININE 0.63 mg/dl (0.44-1.00); POTASSIUM 3.6 mmol/L (3.5-5.1); TOTAL PROTEIN 8.5 g/dl (6.1-8.1)
[2017-06-26] MEDS ORDERED: ONDANSETRON 4 MG INJ IV STA ×2 (16:09→16:48)
[2017-06-26] MEDS ORDERED: morphine 4 MG/ML VIAL IV STA ×2 (16:09→19:52)
[2017-06-26] MEDS ORDERED: SOD CHLORIDE 0.9% 1,000 ML IV ONE (16:30)
--- NOTE | 2017-06-26 16:37 | RADRPT ---
PROCEDURE: US Abdomen Limited . CLINICAL INDICATION: Abdominal pain TECHNIQUE: Multiple real-time images were acquired of the patient's right upper quadrant abdomen u tilizing a high resolution transducer. COMPARISON: January 31, 2013 FINDINGS: The liver measures 13.7 cm and demonstrates a normal echogenicity. The gallbladder has been removed. The common bile duct measures 3.1 mm in diameter. The visualized portions of the proximal pancreas are unremarkable. The tail of the pancreas is not well visualized. Antegrade flow is seen in the portal vein. Right kidney measures 10.5 cm. Right kidney demonstrates a normal echogenicity. No hydronephrosis, masses or stones are noted. IMPRESSION: Status post cholecystectomy. Tail of the pancreas not well visualized. If characterization of this structure is needed repeat exa m or CT/MRI is recommended. Otherwise, unremarkable exam. RPTAT: AA .Malcolm Ferrara MD, MD Date Time Electronically viewed and signed by .Malcolm Ferrara MD, MD on 06/26/2017 16:37 .P/
[2017-06-26 17:49] LABS: BARBITURATES Negative (NEGATIVE); BENZODIAZEPINES Negative (NEGATIVE); CANNABINOIDS Negative (NEGATIVE); COCAINE Negative (NEGATIVE); OPIATES Negative (NEGATIVE)
[2017-06-26 17:58] VITALS: BP 135/81; PULSE 98; RESP 18; TEMP 98
[2017-06-26] MEDS ORDERED: METOCLOPRAMIDE 10 MG INJ IV ONE (18:30)
[2017-06-26 18:42] LABS: ACETAMINOPHEN < 10.0 ug/ml (10.0-30.0); ETHANOL < 10.0 mg/dl; SALICYLATE < 1.0 mg/dl (5.0-30.0)
== END 2017-06-26 20:07 | disposition short-term general hospital (02) ==
LOC: FTE 13:47
DX: R10.13 Epigastric pain (principal); R74.0 Nonspecific elevation of levels of transaminase and lactic acid dehydrogenase [LDH]; R11.2 Nausea with vomiting, unspecified; I10 Essential (primary) hypertension; F17.210 Nicotine dependence, cigarettes, uncomplicated
CPT/HCPCS: 36415; 76705; 80053; 80306; 80307; 81001; 83690; 84703; 85025; 86706; 86708; 86709; 86803; 87340; 96374; 96375; 96376; J2270; J2405; J2765; J7030; Z7502; Z7610

== ENCOUNTER 2017-12-02 10:36 | Outpatient (CLI) | END 2017-12-02 12:38 | disposition home or self-care (01) ==

== ENCOUNTER 2018-07-07 22:49 | Inpatient (IN) | END 2018-07-09 13:45 | disposition home or self-care (01) | DRG 310 ==

== ENCOUNTER 2019-02-11 19:23 | Emergency (ER) | payer OTHER ==
[~2019-02-11] VITALS: Wt 99.6 kg
[~2019-02-11 19:23] MED LIST changes: -AMOX1TAB10 PO; +ASPI-903 PO; -CARV6.2579 PO; +DOCU-144 PO; +FER325 PO; -HYDR-3498 PO; -HYDR-906 PO; -IBUP-1542 PO; -MECL12.574 PO; +METO-335 PO; -NIFEdipine (XL) PO; -NIT4 SL; -ONDA4TAB8 PO; -PRENAT PO
[2019-02-11] MEDS ORDERED: KETOROLAC 30 MG INJ IM STA (20:37)
[2019-02-11] MEDS ORDERED: ONDANSETRON (ODT) 4 MG TAB ODT STA (20:37)
[2019-02-11] MEDS ORDERED: LIDOCAINE/MYLANTA 40 ML BTL PO ONE (21:00)
[2019-02-11] MEDS ORDERED: HYDROCODONE/APAP (5/325) TAB PO ONE (22:00)
[2019-02-11] MEDS ORDERED: HYDR-4011 PO (22:17)
[2019-02-11] MEDS ORDERED: MAG-19 PO (22:17)
[2019-02-11] MEDS ORDERED: ONDA4TAB14 PO (22:20)
--- NOTE | 2019-02-11 22:20 | ERD ---
ER Documentation Chief Complaint Chief Complaint R SIDE ABD PAIN X LAST NOC, NAUSEA HPI 23-year-old female past medical history of hypertension presents for abdominal pain x1 day. There is associated nausea. Abdominal pain is in the periumbilical area, rated 8 out of 10, described as intermittent states that her last for about 5 minutes at a time. Pain is described as sharp. She denies any vomiting. Denies any dysuria. Denies diarrhea. Denies chest pain or shortness of breath. No treatments tried at home. No other modifying factors noted. ROS All systems reviewed and are negative except as per history of present illness. Medications Home Meds Active Scripts Ondansetron (Ondansetron Odt) 4 Mg Tab.rapdis, 4 MG PO Q6H PRN for NAUSEA AND/OR VOMITING, #15 TAB Prov:CADEN CHIANG DO 02/11/19 Magaldrate/Simethicone* (Mylanta*) 355 Ml Susp, 30 ML PO QID PRN for GASTROINTESTINAL UPSET, #1 BOTTLE Prov:CADEN CHIANG DO 02/11/19 Hydrocodone/Acetaminophen (Laurens 5-325 Tablet) 1 Each Tablet, 1 EACH PO Q6H PRN for PAIN, #10 TAB Prov:CADEN CHIANG DO 02/11/19 Docusate Sodium* (Colace*) 100 Mg Capsule, 100 MG PO DAILY, #30 CAP Prov:FOWLER,MARIO V. ESTIMATOR [employer]OXES 07/09/18 Ferrous Sulfate* (Ferrous Sulfate*) 325 Mg Tabec, 325 MG PO TID, #90 TAB Prov:FOWLER,MARIO V. ESTIMATOR [employer] 07/09/18 Metoprolol Succinate* (Toprol XL*) 25 Mg Tab.sr.24h, 25 MG PO DAILY, #30 TAB Prov:FOWLER,MARIO V. ESTIMATOR [employer] 07/09/18 Aspirin* (Aspirin* Chew) 81 Mg Tab.chew, 81 MG PO DAILY, #30 TAB.CHEW Prov:FOWLER,MARIO V. ESTIMATOR [employer] 07/09/18 Allergies Allergies: Coded Allergies: Penicillins (Verified Allergy, Intermediate, RASH, 07/07/18) PMhx/Soc History of Surgery: Yes (GALLBLADDER, ) Anesthesia Reaction: No Hx Neurological Disorder: No Hx Respiratory Disorders: No Hx Cardiac Disorders: Yes (HTN) Hx Psychiatric Problems: No Hx Miscellaneous Medical Probl: Yes (c-sectionx3) Hx Alcohol Use: No Hx Substance Use: No Hx Tobacco Use: Yes Smoking Status: Never smoker FmHx Family History: No coronary disease Physical Exam Vitals Vital Signs Date Temp Pulse Resp B/P (MAP) Pulse Ox O2 O2 Flow FiO2 Time Delivery Rate 02/11/19 99.6 77 20 176/95 97 19:49 (122) Physical Exam Const: No acute distress Resp: Clear to auscultation bilaterally Cardio: Regular rate and rhythm, no murmurs Abd: Soft, non distended. Normal bowel sounds, mild tenderness to palpation over the para umbilical area, no McBurney's point tenderness, no Domingo sign, no rebound or guarding noted Skin: No petechiae or rashes Back: No midline or flank tenderness Ext: No cyanosis, or edema Neur: Awake and alert Psych: Normal Mood and Affect Result Diagram: 02/11/19210002/11/192100 Results 24 hrs Laboratory Tests Test 02/11/19 20:47 02/11/19 21:01 POC Beta HCG, Qualitative NEGATIVE White Blood Count 8.8 10^3/ul Red Blood Count 5.08 10^6/ul Hemoglobin 13.3 g/dl Hematocrit 41.4 % Mean Corpuscular Volume 81.5 fl Mean Corpuscular Hemoglobin 26.2 pg Mean Corpuscular Hemoglobin Concent 32.1 g/dl Red Cell Distribution Width 13.2 % Platelet Count 255 10^3/UL Mean Platelet Volume 10.3 fl Immature Granulocytes % 0.500 % Neutrophils % 63.4 % Lymphocytes % 24.7 % Monocytes % 8.7 % Eosinophils % 2.2 % Basophils % 0.5 % Nucleated Red Blood Cells % 0.0 /100WBC Immature Granulocytes # 0.040 10^3/ul Neutrophils # 5.6 10^3/ul Lymphocytes # 2.2 10^3/ul Monocytes # 0.8 10^3/ul Eosinophils # 0.2 10^3/ul Basophils # 0.0 10^3/ul Nucleated Red Blood Cells # 0.0 10^3/ul Urine Color YELLOW Urine Clarity TURBID Urine pH 7.0 Urine Specific [place] 1.021 Urine Ketones NEGATIVE mg/dL Urine Nitrite NEGATIVE mg/dL Urine Bilirubin NEGATIVE mg/dL Urine Urobilinogen NEGATIVE mg/dL Urine Leukocyte Esterase NEGATIVE Anat/ul Urine Microscopic RBC 1 /HPF Urine Microscopic WBC 0 /HPF Urine Squamous Epithelial Cells FEW /HPF Urine Bacteria MODERATE /HPF Urine Hemoglobin 2+ mg/dL Urine Glucose NEGATIVE mg/dL Urine Total Protein NEGATIVE mg/dl Sodium Level 143 mmol/L Potassium Level 4.0 mmol/L Chloride Level 108 mmol/L Carbon Dioxide Level 27 mmol/L Anion Gap 8 Blood Urea Nitrogen 13 mg/dl Creatinine 0.68 mg/dl Est Glomerular Filtrat Rate mL/min > 60 mL/min Glucose Level 100 mg/dl Calcium Level 9.6 mg/dl Total Bilirubin 0.1 mg/dl Direct Bilirubin 0.00 mg/dl Indirect Bilirubin 0.1 mg/dl Aspartate Amino Transf (AST/SGOT) 22 IU/L Alanine Aminotransferase (ALT/SGPT) 16 IU/L Alkaline Phosphatase 94 IU/L Total Protein 7.4 g/dl Albumin 4.3 g/dl Globulin 3.10 g/dl Albumin/Globulin Ratio 1.38 Lipase 67 U/L Current Medications Medications Dose Sig/Nino Start Time Status Last (Trade) Ordered Route PRN Stop Time Admin Dose Reason Admin Ketorolac 30 mg ONCE STAT 02/11/19 DC 02/11/19 Tromethamine IM 20:37 20:59 (Toradol) 02/11/19 20:39 Ondansetron 4 mg ONCE STAT 02/11/19 DC 02/11/19 HCl (Zofran ODT 20:37 20:47 Odt) 02/11/19 20:39 40 ml ONCE ONCE 02/11/19 DC 02/11/19 Miscellaneous PO 21:00 20:59 Medication 02/11/19 21:01 (Gi Cocktail (2)) 1 tab ONCE ONCE 02/11/19 DC 02/11/19 Acetaminophen PO 22:00 22:03 / 02/11/19 22:01 Hydrocodone Bitart ([place] (5/325)) Procedures/MDM Medical Decision Making: Differential diagnosis includes but not limited to acute gastritis, acute gastroenteritis, appendicitis, cholecystitis, pancreatitis, nephrolithiasis Patient appeared well on physical exam. Nontoxic appearing. ED course: Patient was given Toradol, Zofran, Laurens, GI cocktail. Symptoms improved with treatment. Labs: CBC showed no severe anemia, no elevated WBC to suggest infection CMP showed no electrolyte abnormalities, there was normal kidney and liver function Lipase was normal Urine was negative UA was negative for infection Given benign abdominal examination and normal lab values, unlikely that patient has surgical abdomen at this point. Patient possibly has gastritis Prescription(s): Patient given prescription for supportive medications . She was given short course low-dose Laurens Patient advised to follow up with PCP in 1-2 days. Patient advised to return to ED for new or worsening symptoms. Patient stable on discharge from the ED. The patient has been prescribed Laurens during this encounter. The patient has been warned about the use of narcotics. The patient should not drive or operate heavy machinery while taking this medication. The patient was also warned about the addictive properties of narcotic medications. Narcan prescription was NOT provided given the following criteria 1. No more than 5 tablets of Laurens 10 mg or 10 tablets of Laurens 5 mg were prescribed. 2. Concomitant opiate and benzodiazepine prescriptions were not provided. 3. There is no obvious evidence of prior history of opiate abuse or overdose. Disclaimer: Inadvertent spelling and grammatical errors are likely due to EHR/dictation software use and do not reflect on the overall quality of patient care. Also, please note that the electronic time recorded on this note does not necessarily reflect the actual time of the patient encounter. Departure Diagnosis: Primary Impression: Abdominal pain Abdominal location: periumbilical Qualified Codes: R10.33 - Periumbilical pain Condition: Fair Patient Instructions: Abdominal Pain Referrals: [facility] YOU HAVE RECEIVED A MEDICAL SCREENING EXAM AND THE RESULTS INDICATE THAT YOU DO NOT HAVE A CONDITION THAT REQUIRES URGENT TREATMENT IN THE EMERGENCY DEPARTMENT. FURTHER EVALUATION AND TREATMENT OF YOUR CONDITION CAN WAIT UNTIL YOU ARE SEEN IN YOUR DOCTORS OFFICE WITHIN THE NEXT 1-2 DAYS. IT IS YOUR RESPONSIBILITY TO MAKE AN APPOINTMENT FOR FOLOW-UP CARE. IF YOU HAVE A PRIMARY DOCTOR --you should call your primary doctor and schedule an appointment IF YOU DO NOT HAVE A PRIMARY DOCTOR YOU CAN CALL OUR PHYSICIAN REFERRAL HOTLINE AT IF YOU CAN NOT AFFORD TO SEE A PHYSICIAN YOU CAN CHOSE FROM THE FOLLOWING [facility] [address] [facility] [address] [facility] [address] [facility] [address] [facility]. [facility] [address], [facility]. [facility] [address] Additional Instructions: Call your primary care doctor TOMORROW for an appointment during the next 1-2 days.See the doctor sooner or return here if your condition worsens before your appointment time. CADEN CHIANG DO February 11, 2019 22:20
[2019-02-11 22:25] VITALS: BP 163/83; PULSE 71; RESP 18
== END 2019-02-11 22:27 | disposition home or self-care (01) ==
LOC: FTE 19:23
DX: R10.33 Periumbilical pain (principal); R11.0 Nausea; I10 Essential (primary) hypertension; Z79.82 Long term (current) use of aspirin
CPT/HCPCS: 36415; 80053; 81001; 81025; 83690; 85025; 96372; J1885; Z7502; Z7610

== ENCOUNTER 2019-02-12 23:45 | Emergency (ER) | payer OTHER ==
[~2019-02-12] VITALS: Wt 78.0 kg
[~2019-02-12 23:45] MED LIST changes: +HYDR-4011 PO; +MAG-19 PO; +ONDA4TAB14 PO
[2019-02-13] MEDS ORDERED: ONDANSETRON (ODT) 4 MG TAB ODT STA (01:10)
[2019-02-13] MEDS ORDERED: ACETAMINOPHEN 325 MG TAB PO ONE (01:30)
[2019-02-13] MEDS ORDERED: ACET1TAB40 PO (02:37)
[2019-02-13] MEDS ORDERED: ONDA8TAB14 PO (02:37)
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
[2019-02-13] MEDS ORDERED: HYDROCODONE/APAP (5/325) TAB PO ONE (03:00)
[2019-02-13 03:25] VITALS: BP 132/57; PULSE 64; RESP 20
== END 2019-02-13 03:27 | disposition home or self-care (01) ==
LOC: FTE 23:45
DX: S09.90XA Unspecified injury of head, initial encounter (principal); I10 Essential (primary) hypertension; F17.210 Nicotine dependence, cigarettes, uncomplicated; R51 Headache; Y04.8XXA Assault by other bodily force, initial encounter; Z79.82 Long term (current) use of aspirin
CPT/HCPCS: 70450; Z7502; Z7610

== ENCOUNTER 2019-04-03 21:41 | Emergency (ER) | payer SELFPAY ==
[~2019-04-03] VITALS: Ht 149.9 cm; Wt 73.3 kg
[~2019-04-03 21:41] MED LIST changes: +ACET1TAB40 PO; +ONDA8TAB14 PO
[2019-04-03 21:44] VITALS: Ht 149.9 cm; Wt 73.3 kg
[2019-04-03] MEDS ORDERED: SOD CHLORIDE 0.9% 1,000 ML IV STA (22:05)
[2019-04-03] MEDS ORDERED: KETOROLAC 15 MG INJ IV STA (22:05)
[2019-04-03] MEDS ORDERED: LORAZEPAM 0.5 MG TAB PO ONE (22:30)
[2019-04-03] MEDS ORDERED: HYDROCHLOROTHIAZIDE 25 MG TAB PO ONE (22:30)
[2019-04-03] MEDS ORDERED: CEFTRIAXONE 1 GM/50 ML (PMX) 50 ML IVPB ONE (23:30)
[2019-04-03 23:57] VITALS: BP 129/77; PULSE 79; RESP 19
--- NOTE | 2019-04-04 02:22 | ERD ---
ER Documentation Chief Complaint Chief Complaint DIZZINESS X'S 1 HOUR, SOB, C/P. 193/106 IN TRIAGE HPI This is a 23-year-old woman previously diagnosed with hypertension and noncompliant with medications presenting with elevated blood pressure and recent dizziness and generalized weakness. She states her symptoms have been present for about 1 day. She is also had some sharp nonexertional nonradiating chest pain today. She denies fevers or chills, no hematuria, no weight loss, no vomiting or diarrhea ROS All systems reviewed and are negative except as per history of present illness. Medications Home Meds Active Scripts Hydrochlorothiazide* (Hydrochlorothiazide*) 25 Mg Tab, 25 MG PO DAILY, #30 TAB Prov:MARCO BETANCOURT MD 04/03/19 Cephalexin* (Keflex*) 500 Mg Capsule, 500 MG PO QID for 5 Days, CAP Prov:MARCO BETANCOURT MD 04/03/19 Allergies Allergies: Coded Allergies: Penicillins (Verified Allergy, Unknown, 04/03/19) PMhx/Soc Hypertension, medication noncompliance History of Surgery: Yes (ana, c section x3) Anesthesia Reaction: No Hx Neurological Disorder: No Hx Respiratory Disorders: No Hx Cardiac Disorders: No Hx Psychiatric Problems: Yes (anxiety ) Hx Miscellaneous Medical Probl: No Hx Alcohol Use: Yes Hx Substance Use: No Hx Tobacco Use: Yes Smoking Status: Current some day smoker FmHx Family History: No diabetes Physical Exam Vitals Vital Signs Date Temp Pulse Resp B/P (MAP) Pulse Ox O2 O2 Flow FiO2 Time Delivery Rate 04/03/19 98.6 79 19 129/77 100 Room Air 23:57 (94) 04/03/19 79 17 150/99 99 Room Air 22:09 (116) 04/03/19 98.7 105 18 193/109 100 21:44 (137) Physical Exam GENERAL: Well-developed, well-nourished, well-hydrated, appears anxious HEENT: Moist mucous membranes, pink conjunctiva, no cervical spine tenderness or step-off deformities, no goiter, no jaundice or icterus, extraocular movements intact without pain. No submandibular induration, and no pharyngeal erythema NEURO: Alert and oriented 3, cranial nerves II through XII intact bilaterally, pupils equal round reactive to light, no focal deficits or facial asymmetry, sensation intact distally Strength 5/5 in upper and lower extremities bilaterally CARDIAC: Regular rate and rhythm, no murmurs rubs or gallops LUNGS: Clear bilaterally no wheezing crackles or stridor ABDOMEN: Soft nontender, no guarding, no rigidity, no rebound, no psoas sign no obturator sign. Normoactive bowel sounds PSYCH: Anxious appearing Result Diagram: 04/03/19 2214 04/03/19 2214 Results 24 hrs Laboratory Tests Test 04/03/19 22:14 04/03/19 22:15 04/03/19 22:26 White Blood Count 7.9 10^3/ul Red Blood Count 5.06 10^6/ul Hemoglobin 13.6 g/dl Hematocrit 40.1 % Mean Corpuscular Volume 79.2 fl Mean Corpuscular Hemoglobin 26.9 pg Mean Corpuscular 33.9 g/dl Hemoglobin Concent Red Cell Distribution Width 13.9 % Platelet Count 258 10^3/UL Mean Platelet Volume 10.5 fl Immature Granulocytes % 0.400 % Neutrophils % 58.7 % Lymphocytes % 32.0 % Monocytes % 6.8 % Eosinophils % 1.6 % Basophils % 0.5 % Nucleated Red Blood Cells % 0.0 /100WBC Immature Granulocytes # 0.030 10^3/ul Neutrophils # 4.7 10^3/ul Lymphocytes # 2.5 10^3/ul Monocytes # 0.5 10^3/ul Eosinophils # 0.1 10^3/ul Basophils # 0.0 10^3/ul Nucleated Red Blood Cells # 0.0 10^3/ul Sodium Level 141 mmol/L Potassium Level 3.6 mmol/L Chloride Level 108 mmol/L Carbon Dioxide Level 22 mmol/L Anion Gap 11 Blood Urea Nitrogen 15 mg/dl Creatinine 0.69 mg/dl Est Glomerular Filtrat > 60 mL/min Rate mL/min Glucose Level 94 mg/dl Calcium Level 9.5 mg/dl Total Bilirubin 0.4 mg/dl Direct Bilirubin 0.00 mg/dl Indirect Bilirubin 0.4 mg/dl Aspartate Amino 24 IU/L Transf (AST/SGOT) Alanine 20 IU/L Aminotransferase (ALT/SGPT) Alkaline Phosphatase 90 IU/L Troponin I < 0.012 ng/ml Total Protein 8.0 g/dl Albumin 4.5 g/dl Globulin 3.50 g/dl Albumin/Globulin Ratio 1.28 Lipase 87 U/L Urine Color YELLOW Urine Clarity SLIGHTLY CLOUDY Urine pH 7.0 Urine Specific [place] 1.013 Urine Ketones TRACE mg/dL Urine Nitrite NEGATIVE mg/dL Urine Bilirubin NEGATIVE mg/dL Urine Urobilinogen NEGATIVE mg/dL Urine Leukocyte Esterase 3+ Anat/ul Urine Microscopic RBC 0 /HPF Urine Microscopic WBC 37 /HPF Urine Squamous Epithelial Cells FEW /HPF Urine Amorphous Crystals FEW /HPF Urine Mucus FEW /HPF Urine Hemoglobin NEGATIVE mg/dL Urine Glucose NEGATIVE mg/dL Urine Total Protein NEGATIVE mg/dl POC Beta HCG, Qualitative NEGATIVE Current Medications Medications Dose Sig/Nino Start Time Status Last (Trade) Ordered Route PRN Stop Time Admin Dose Reason Admin 25 mg ONCE ONCE 04/03/19 DC 04/03/19 Hydrochloroth PO 22:30 22:24 iazide 04/03/19 22:31 (Hydrochlorot hiazide) Sodium 1,000 ml @ Q1H STAT 04/03/19 DC 04/03/19 Chloride 1,000 mls/hr IV 22:05 22:25 04/03/19 23:04 Ketorolac 15 mg ONCE STAT 04/03/19 DC 04/03/19 Tromethamine IV 22:05 22:25 (Toradol) 04/03/19 22:08 Lorazepam 0.5 mg ONCE ONCE 04/03/19 DC 04/03/19 (Ativan) PO 22:30 22:24 04/03/19 22:31 Ceftriaxone 50 ml @ ONCE ONCE 04/03/19 DC 04/03/19 Sodium 100 mls/hr IVPB 23:30 23:55 04/03/19 23:59 Procedures/MDM IV line was established patient was placed on rivet spinner rhythm strip revealed a sinus rhythm at about 80 bpm with upright P and T waves. Patient was afebrile EKG performed, read by me: 70 bpm, normal sinus rhythm, normal axis, no acute ST segment changes, narrow QRS complex, with good R-wave progression in precordial leads. I administered 1 L normal saline IV, Toradol 15 mg IV, lorazepam 0.5 mg p.o., hydrochlorothiazide 25 mg p.o. x1 for hypertension Patient's blood pressure did improve. CBC and electrolytes were normal, liver function tests were normal, troponin was negative, test was negative, urine analysis positive for infection. I administered ceftriaxone 1 g IV x1 for UTI. Differential diagnoses considered, included but not limited to acute coronary syndrome, pulmonary embolism, aortic dissection, abdominal aortic aneurysm, sepsis, stroke, meningitis, encephalitis, pneumonia, appendicitis, cholecystitis, bowel obstruction, pyelonephritis, nephrolithiasis, cystitis, as well as metabolic, hematologic, and electrolyte abnormalities. As well as abscess, cellulitis, fractures, and dislocations. Patient feels much better at this time, and vital signs are normal, symptoms have improved. I did give strict instructions to return to the ED if symptoms continue or worsen, patient will otherwise follow-up with primary care physician. Patient understood instructions and agreed to plan. Disclaimer: Inadvertent spelling and grammatical errors are likely due to EHR/dictation software use and do not reflect on the overall quality of patient care. Also, please note that the electronic time recorded on this note does not necessarily reflect the actual time of the patient encounter. Departure Diagnosis: Primary Impression: HTN (hypertension) Hypertension type: essential hypertension Qualified Codes: I10 - Essential (primary) hypertension Additional Impressions: Acute anxiety Acute UTI Ruled Out: Multiple complaints Condition: Good Patient Instructions: Hypertension, To Be Confirmed, Bladder Infection, Female (Adult) MARCO BETANCOURT MD Apr 04, 2019 02:22
== END 2019-04-04 00:25 | disposition home or self-care (01) ==
LOC: MERGE 21:41 → E/R 21:41
DX: I10 Essential (primary) hypertension (principal); F17.210 Nicotine dependence, cigarettes, uncomplicated; F41.9 Anxiety disorder, unspecified; N39.0 Urinary tract infection, site not specified
CPT/HCPCS: 36415; 71045; 80053; 81001; 81025; 83690; 84484; 85025; 93005; 96361; 96374; 96375; 99285; J0696; J1885; J7030